=== PATIENT | female | born 1980 | race Hispanic/Latino ===

== ENCOUNTER 2017-12-03 18:16 | Observation (INO) | payer OTHER ==
[~2017-12-03] VITALS: Ht 180.3 cm; Wt 103.4 kg
[~2017-12-03 18:16] MED LIST: BYSTOLIC10 MG PO; CEFAZOLIN2 GM/50 ML IV; COUMADIN2 MG PO; IUD; MIDODRINE; TOPAMAX; TOPAMAX25 MG PO; TYLENOL WITH C1 EAC1 PO; XARELTO20 MG PO; ZANAFLEX4 MG PO
--- OUTSIDE RECORDS SUMMARY | 2017-12-03 18:19 | XMS REPORT | Clinical Summary ---
Author Author [facility] Address Unknown Phone Unavailable Care Team Providers Care Croze Cutter Name Role Phone PCP Unavailable Allergies Active Allergy Reactions Severity Noted Date Comments Sulfamethoxazole-Trimetho Hives 05/11/2015 prim Other 05/11/2015 chlorahexadine and pineapple Shellfish Containing 05/11/2015 Products Sulfa (Sulfonamide Hives 05/11/2015 Antibiotics) Current Medications Prescription Sig. Disp. Refills Start End Date Status Date topiramate (TOPAMAX) 50 Take 50 mg by mouth 2 Active MG tablet (two) times daily. WARFARIN SODIUM by Miscellaneous route 3 Active (WARFARIN, BULK, MISC) mg Tues, Thurs, Sat, Sun 5 mg Mon, Wed, Frid . acetaminophen-codeine Take 1 tablet by mouth 20 tablet 0 06/04/20 (TYLENOL #3) 300-30 mg every 4 (four) hours as 17 17 per tablet needed for up to 10 days. Max Daily Amount: 6 tablets Active Problems Not on file Encounters Date Type Specialty Care Team Description 06/04/2017 Emergency Emergency Medicine Jose Carlos Victor MD Chest pain, unspecified type (Primary Dx);Generalized abdominal pain;Shortness of breath 06/04/2017 Orders Only General Internal Medicine 01/31/2017 Hospital Jose Horner MD Visit for screening Encounter mammogram 01/30/2017 Outside Orders Central Scheduling Jose Horner MD Visit for screening mammogram (Primary Dx) after 12/02/2016 Social History Tobacco Use Types Packs/Day Years Used Date Never Smoker Alcohol Use Drinks/Week oz/Week Comments No Sex Assigned at Date Recorded Not on file Last Filed Vital Signs Vital Sign Reading Time Taken Blood Pressure 106/70 06/04/2017 1:10 PM EQUALIZER OPERATOR Pulse 96 06/04/2017 1:10 PM EQUALIZER OPERATOR Temperature 37 C (98.6 F) 06/04/2017 1:10 PM EQUALIZER OPERATOR Respiratory Rate 16 06/04/2017 1:10 PM EQUALIZER OPERATOR Oxygen Saturation 100% 06/04/2017 1:10 PM EQUALIZER OPERATOR Inhaled Oxygen - - Concentration Weight 107.5 kg (237 lb) 06/04/2017 9:09 AM EQUALIZER OPERATOR Height 180.3 cm (5' 11") 06/04/2017 9:09 AM EQUALIZER OPERATOR Body Mass Index 33.05 06/04/2017 9:09 AM EQUALIZER OPERATOR Plan of Treatment Not on file Results * EKG-SCANNED (06/05/2017 10:30 AM) * CT chest for pulmonary embolus (06/04/2017 11:51 AM) Specimen Performing Laboratory 3yy game platform Narrative FINAL REPORT Chest CT with contrast, PE protocol. Abdomen and pelvis CT with contrast. INDICATION: abdominal pain cp/sob following ivc filter removal last week COMPARISON: 05/11/2015 TECHNIQUE: CT examination of the chest was performed after the administration of intravenous contrast per pulmonary embolism protocol. Coronal multiplanar reformation of the pulmonary arteries were performed. CT examination of the abdomen and pelvis was performed after the administration of intravenous contrast. This exam was performed according to our departmental dose optimization program which includes automated exposure control, adjustment of the mA and/or kV according to patient size and/or use of iterative reconstructive technique. The examination of the abdomen and pelvis was suboptimal due to scanner malfunction. Only delayed series of the abdomen and pelvis were obtained. FINDINGS: The contrast bolus was adequate. There is no abnormal filling defect in the pulmonary trunk or pulmonary arteries to suggest pulmonary embolism. There is no pneumothorax, pulmonary edema or pleural effusion. There is mild atelectasis and scarring without focal consolidation. The major airways are clear. The visualized portion of the thyroid gland appear unremarkable. There is no hilar, mediastinal or axillary lymphadenopathy. The liver, spleen, pancreas, and adrenal glands are unremarkable. The gallbladder is unremarkable. There is no biliary dilatation. The stomach is underdistended limiting its evaluation. Both kidneys are unremarkable. The urinary bladder is unremarkable. The uterus and adnexa are unremarkable. No pelvic masses are seen. There is no free fluid in the abdomen and pelvis. There is no bowel obstruction or perforation. The appendix appear unremarkable. There is no fluid collection or hematoma. There is no lymphadenopathy. The osseous structures demonstrate postsurgical changes from multilevel lumbar fusion. No suspicious mass or fracture is seen. There is mild fat stranding in the right inguinal region without fluid collection or hematoma. IMPRESSION: 1. No evidence of pulmonary embolism. 2. No acute abnormality visualized in the abdomen and pelvis. Signed: Manas Andrew MD Report Verified Date/Time:06/04/2017 12:17:40 Reading Location: [facility] C013X Ortho Consult Reading Room Procedure Note Interface, External Ris In - 06/04/2017 12:19 PM EQUALIZER OPERATOR FINAL REPORT Chest CT with contrast, PE protocol. Abdomen and pelvis CT with contrast. INDICATION: abdominal pain cp/sob following ivc filter removal last week COMPARISON: 05/11/2015 TECHNIQUE: CT examination of the chest was performed after the administration of intravenous contrast per pulmonary embolism protocol. Coronal multiplanar reformation of the pulmonary arteries were performed. CT examination of the abdomen and pelvis was performed after the administration of intravenous contrast. This exam was performed according to our departmental dose optimization program which includes automated exposure control, adjustment of the mA and/or kV according to patient size and/or use of iterative reconstructive technique. The examination of the abdomen and pelvis was suboptimal due to scanner malfunction. Only delayed series of the abdomen and pelvis were obtained. FINDINGS: The contrast bolus was adequate. There is no abnormal filling defect in the pulmonary trunk or pulmonary arteries to suggest pulmonary embolism. There is no pneumothorax, pulmonary edema or pleural effusion. There is mild atelectasis and scarring without focal consolidation. The major airways are clear. The visualized portion of the thyroid gland appear unremarkable. There is no hilar, mediastinal or axillary lymphadenopathy. The liver, spleen, pancreas, and adrenal glands are unremarkable. The gallbladder is unremarkable. There is no biliary dilatation. The stomach is underdistended limiting its evaluation. Both kidneys are unremarkable. The urinary bladder is unremarkable. The uterus and adnexa are unremarkable. No pelvic masses are seen. There is no free fluid in the abdomen and pelvis. There is no bowel obstruction or perforation. The appendix appear unremarkable. There is no fluid collection or hematoma. There is no lymphadenopathy. The osseous structures demonstrate postsurgical changes from multilevel lumbar fusion. No suspicious mass or fracture is seen. There is mild fat stranding in the right inguinal region without fluid collection or hematoma. IMPRESSION: 1. No evidence of pulmonary embolism. 2. No acute abnormality visualized in the abdomen and pelvis. Signed: Manas Andrew MD Report Verified Date/Time: 06/04/2017 12:17:40 Reading Location: [facility] B1 C013X Ortho Consult Reading Room * CT abdomen/pelvis with IV contrast (06/04/2017 11:51 AM) Specimen Performing Laboratory 3yy game platform Narrative FINAL REPORT Chest CT with contrast, PE protocol. Abdomen and pelvis CT with contrast. INDICATION: abdominal pain cp/sob following ivc filter removal last week COMPARISON: 05/11/2015 TECHNIQUE: CT examination of the chest was performed after the administration of intravenous contrast per pulmonary embolism protocol. Coronal multiplanar reformation of the pulmonary arteries were performed. CT examination of the abdomen and pelvis was performed after the administration of intravenous contrast. This exam was performed according to our departmental dose optimization program which includes automated exposure control, adjustment of the mA and/or kV according to patient size and/or use of iterative reconstructive technique. The examination of the abdomen and pelvis was suboptimal due to scanner malfunction. Only delayed series of the abdomen and pelvis were obtained. FINDINGS: The contrast bolus was adequate. There is no abnormal filling defect in the pulmonary trunk or pulmonary arteries to suggest pulmonary embolism. There is no pneumothorax, pulmonary edema or pleural effusion. There is mild atelectasis and scarring without focal consolidation. The major airways are clear. The visualized portion of the thyroid gland appear unremarkable. There is no hilar, mediastinal or axillary lymphadenopathy. The liver, spleen, pancreas, and adrenal glands are unremarkable. The gallbladder is unremarkable. There is no biliary dilatation. The stomach is underdistended limiting its evaluation. Both kidneys are unremarkable. The urinary bladder is unremarkable. The uterus and adnexa are unremarkable. No pelvic masses are seen. There is no free fluid in the abdomen and pelvis. There is no bowel obstruction or perforation. The appendix appear unremarkable. There is no fluid collection or hematoma. There is no lymphadenopathy. The osseous structures demonstrate postsurgical changes from multilevel lumbar fusion. No suspicious mass or fracture is seen. There is mild fat stranding in the right inguinal region without fluid collection or hematoma. IMPRESSION: 1. No evidence of pulmonary embolism. 2. No acute abnormality visualized in the abdomen and pelvis. Signed: Manas Andrew MD Report Verified Date/Time:06/04/2017 12:17:40 Reading Location: [facility] C013X Ortho Consult Reading Room Procedure Note Interface, External Ris In - 06/04/2017 12:19 PM EQUALIZER OPERATOR FINAL REPORT Chest CT with contrast, PE protocol. Abdomen and pelvis CT with contrast. INDICATION: abdominal pain cp/sob following ivc filter removal last week COMPARISON: 05/11/2015 TECHNIQUE: CT examination of the chest was performed after the administration of intravenous contrast per pulmonary embolism protocol. Coronal multiplanar reformation of the pulmonary arteries were performed. CT examination of the abdomen and pelvis was performed after the administration of intravenous contrast. This exam was performed according to our departmental dose optimization program which includes automated exposure control, adjustment of the mA and/or kV according to patient size and/or use of iterative reconstructive technique. The examination of the abdomen and pelvis was suboptimal due to scanner malfunction. Only delayed series of the abdomen and pelvis were obtained. FINDINGS: The contrast bolus was adequate. There is no abnormal filling defect in the pulmonary trunk or pulmonary arteries to suggest pulmonary embolism. There is no pneumothorax, pulmonary edema or pleural effusion. There is mild atelectasis and scarring without focal consolidation. The major airways are clear. The visualized portion of the thyroid gland appear unremarkable. There is no hilar, mediastinal or axillary lymphadenopathy. The liver, spleen, pancreas, and adrenal glands are unremarkable. The gallbladder is unremarkable. There is no biliary dilatation. The stomach is underdistended limiting its evaluation. Both kidneys are unremarkable. The urinary bladder is unremarkable. The uterus and adnexa are unremarkable. No pelvic masses are seen. There is no free fluid in the abdomen and pelvis. There is no bowel obstruction or perforation. The appendix appear unremarkable. There is no fluid collection or hematoma. There is no lymphadenopathy. The osseous structures demonstrate postsurgical changes from multilevel lumbar fusion. No suspicious mass or fracture is seen. There is mild fat stranding in the right inguinal region without fluid collection or hematoma. IMPRESSION: 1. No evidence of pulmonary embolism. 2. No acute abnormality visualized in the abdomen and pelvis. Signed: Manas Andrew MD Report Verified Date/Time: 06/04/2017 12:17:40 Reading Location: [facility] B1 C013X Ortho Consult Reading Room * ECG 12 lead (06/04/2017 9:36 AM) Specimen Performing Laboratory GE MUSE Narrative Ventricular Rate 112 BPM Atrial Rate 112 BPM P-R Interval 142 ms QRS Duration 76 ms Q-T Interval 314 ms QTC Calculation(Bazett) 428 ms P [place] 56 degrees R [place] 33 degrees T [place] 37 degrees Sinus tachycardia Otherwise normal ECG When compared with ECG of 11-MAY-2015 12:04, No significant change was found Confirmed by MD PEACE YOCHAI ([id number]) on 06/05/2017 7:12:12 AM Procedure Note Interface, External Ris In - 06/05/2017 7:12 AM EQUALIZER OPERATOR Ventricular Rate 112 BPM Atrial Rate 112 BPM P-R Interval 142 ms QRS Duration 76 ms Q-T Interval 314 ms QTC Calculation(Bazett) 428 ms P [place] 56 degrees R [place] 33 degrees T [place] 37 degrees Sinus tachycardia Otherwise normal ECG When compared with ECG of 11-MAY-2015 12:04, No significant change was found Confirmed by MD PEACE YOCHAI ([id number]) on 06/05/2017 7:12:12 AM * Screen, urine (06/04/2017 9:28 AM) Component Value Ref Range Preg Test, Ur Negative Specimen Performing Laboratory Urine - Urine, Voided [address] [address] * PT/aPTT (06/04/2017 9:27 AM) Component Value Ref Range Protime 20.1 (H) 11.7 - 14.7 seconds INR 1.7 <=5.9 PTT 39.4 (H) 22.5 - 36.0 seconds Specimen Performing Laboratory Blood - Line, Venous [address] [address] Narrative RECOMMENDED COUMADIN/WARFARIN INR THERAPY RANGES STANDARD DOSE: 2.0 - 3.0 Includes: PROPHYLAXIS for venous thrombosis, systemic embolization; TREATMENT for venous thrombosis and/or pulmonary embolus. HIGH RISK: Target INR is 2.5-3.5 for patients with mechanical heart valves. * CBC with platelet count + automated diff (06/04/2017 9:27 AM) Component Value Ref Range WBC 10.6 (H) 3.5 - 10.5 K/ L RBC 4.33 3.93 - 5.22 M/ L Hemoglobin 13.0 11.2 - 15.7 GM/DL Hematocrit 40.4 34.1 - 44.9 % MCV 93.3 79.4 - 94.8 fL MCH 30.0 25.6 - 32.2 pg MCHC 32.2 32.2 - 35.5 GM/DL RDW 14.5 (H) 11.7 - 14.4 % Platelets 285 150 - 450 K/CU MM MPV 9.8 9.4 - 12.3 fL nRBC 0 0 - 0 /100 WBC % Neutros 66 % % Lymphs 23 % % Monos 7 % % Eos 3 % % Baso 1 % # Neutros 7.01 (H) 1.56 - 6.13 K/ L # Lymphs 2.44 1.18 - 3.74 K/ L # Monos 0.71 (H) 0.24 - 0.36 K/ L # Eos 0.31 0.04 - 0.36 K/ L # Baso 0.07 0.01 - 0.08 K/ L Immature 0 0 - 1 % Granulocytes-Relative Specimen Performing Laboratory Blood - Line, Venous [facility] [address] [address] * CBC with platelet count + automated diff (06/04/2017 9:27 AM) Specimen Performing Laboratory Blood Narrative The following orders were created for panel order CBC with platelet count + automated diff. Procedure Abnormality Status --------- - ------ CBC with platelet count ...[[id number]]AbnormalFinal result Please view results for these tests on the individual orders. * Comprehensive metabolic panel (06/04/2017 9:27 AM) Component Value Ref Range Protein, Total 8.1 6.0 - 8.3 gm/dL Albumin 4.2 3.5 - 5.0 g/dL Alkaline Phosphatase 85 40 - 150 U/L Total Bilirubin 0.4 0.2 - 1.2 mg/dL Sodium 138 136 - 145 meq/L Potassium 3.7 3.5 - 5.1 meq/L Chloride 109 (H) 98 - 107 meq/L CO2 19 (L) 22 - 29 meq/L BUN 9 7 - 21 mg/dL Creatinine 0.83 0.57 - 1.25 mg/dL Glucose 119 (H) 70 - 105 mg/dL Calcium 9.3 8.4 - 10.2 mg/dL AST 23 5 - 34 U/L ALT 16 6 - 55 U/L EGFR 78Comment: ESTIMATED GFR IS NOT ACCURATE mL/min/1.73 sq m CREATININE CLEARANCE IN PREDICTING GLOMERULAR FILTRATION RATE. ESTIMATED GFR IS NOT APPLICABLE FOR DIALYSIS PATIENTS. Specimen Performing Laboratory Blood - Line, [place] [address] * POC-Lactic Acid, Venous (06/04/2017 9:23 AM) Component Value Ref Range POC-Lactic Acid, Venous 1.7Comment: TESTED AT [address] 0.9 - 1.7 mmol/L [place] [address] Specimen Performing [place] [address] * POC-Glucose meter (06/04/2017 9:22 AM) Component Value Ref Range POC-Glucose Meter 131 (H)Comment: TESTED AT [address] 70 - 110 mg /dL [place] [address] Specimen Performing [place] [address] * Mammogram Screening Bilateral (01/31/2017 1:52 PM) Specimen Performing Laboratory GE RIS Narrative #[id number] - MM, DIGITAL, MAMMO, SCREENING, BILATERAL INCLUDING CAD BILATERAL DIGITAL SCREENING MAMMOGRAM WITH CAD: 01/31/2017 No prior exams were available for comparison. There are scattered fibroglandular elements in both breasts that could obscure a lesion on mammography. Current study was also evaluated with a Computer Aided Detection (CAD) system. No significant masses, calcifications, or other findings are seen in either breast. IMPRESSION: BENIGN There is no mammographic evidence of malignancy. A 5 year screening mammogram is recommended. Luis Hollingsworth M.D. pth/penrad:01/31/2017 14:16:04 Normal Exam Mammogram BI-RADS: 2 Benign [id number] Procedure Note Interface, External Ris In - 01/31/2017 4:22 PM CDT #[id number] - MM, DIGITAL, MAMMO, SCREENING, BILATERAL INCLUDING CAD BILATERAL DIGITAL SCREENING MAMMOGRAM WITH CAD: 01/31/2017 No prior exams were available for comparison. There are scattered fibroglandular elements in both breasts that could obscure a lesion on mammography. Current study was also evaluated with a Computer Aided Detection (CAD) system. No significant masses, calcifications, or other findings are seen in either breast. IMPRESSION: BENIGN There is no mammographic evidence of malignancy. A 5 year screening mammogram is recommended. Luis Hollingsworth M.D. pth/penrad:01/31/2017 14:16:04 Normal Exam Mammogram BI-RADS: 2 Benign [id number] after 12/02/2016
--- OUTSIDE RECORDS SUMMARY | 2017-12-03 18:19 | XMS REPORT ---
Author Author [facility] Address Unknown Phone Unavailable Care Team Providers Care Medical Administrative Specialist Name Role Phone ADRIENNE SANTA Unavailable Unavailable Problems This patient has no known problems. Allergies, Adverse Reactions, Alerts This patient has no known allergies or adverse reactions. Medications This patient has no known medications. Results Test Description Test Time Test Comments Text Results Atomic Results Result Comments CT, ABDOMEN 2017-06-04 12:17:00 Reason for exam:->abdominal painIs the patient ?->UnknownWhat is the patient's sedation requirement?->No Sedation FINAL REPORT Chest CT with contrast, PE protocol. Abdomen and pelvis CT with contrast. INDICATION: abdominal paincp/sob following ivc filter removal last week COMPARISON: [...] inguinal region without fluid collection or hematoma. IMPRESSION:1. No evidence of pulmonary embolism.2. No acute abnormality visualized in the abdomen and pelvis. Signed: Manas Andrew MDReport Verified Date/Time: 06/04/2017 12:17:40 Reading Location: [facility] B1 C013X Ortho Consult Reading Room , CHEST WITH IV CONTRAST- PE TEST DESIGN 2017-06-04 12:17:00 Reason for exam:->chest painIs the patient ?->UnknownWhat is the patient's sedation requirement?->No Sedation FINAL REPORT Chest CT with contrast, PE protocol. Abdomen and pelvis CT with contrast. INDICATION: abdominal paincp/sob following ivc filter removal last week COMPARISON: 2014 TECHNIQUE: CT examination of the chest was [...] inguinal region without fluid collection or hematoma. IMPRESSION:1. No evidence of pulmonary embolism.2. No acute abnormality visualized in the abdomen and pelvis. Signed: Manas Andrew MDReport Verified Date/Time: 06/04/2017 12:17:40 Reading Location: [facility] B1 C013X Ortho Consult Reading Room -GLUCOSE METER 2017-06-04 11:46:00 POC-GLUCOSE METER (BEAKER) (test drpm=1866) 131 mg/dL 70-110 TESTED AT [facility] [address] [facility] [address] [id number] 10:00:00* Test Item Value Reference Range Comments PROTIME (BEAKER) (test mzuz=271) 20.1 seconds 11.7-14.7 INR (BEAKER) (test qkon=885) 1.7 <=5.9 PARTIAL THROMBOPLASTIN TIME (BEAKER) (test lxga=790) 39.4 seconds 22.5-36.0 RECOMMENDED COUMADIN/WARFARIN INR THERAPY RANGESSTANDARD DOSE: 2.0 - 3.0 Includes: PROPHYLAXIS for venous thrombosis, systemic embolization; TREATMENT for venous thrombosis and/or pulmonary embolus.HIGH RISK: Target INR is 2.5-3.5 for patients with mechanical heart valves.COMPREHENSIVE METABOLIC [id number] 09:58:00* Test Item Value Reference Range Comments TOTAL PROTEIN (BEAKER) (test hbyi=214) 8.1 gm/dL 6.0-8.3 ALBUMIN (BEAKER) (test repq=1381) 4.2 g/dL 3.5-5.0 ALKALINE PHOSPHATASE (BEAKER) (test kwyq=411) 85 U/L 40-150 BILIRUBIN TOTAL (BEAKER) (test ford=509) 0.4 mg/dL 0.2-1.2 SODIUM (BEAKER) (test pobi=492) 138 meq/L 136-145 POTASSIUM (BEAKER) (test fwex=047) 3.7 meq/L 3.5-5.1 CHLORIDE (BEAKER) (test rtxi=984) 109 meq/L 98-107 CO2 (BEAKER) (test paur=681) 19 meq/L 22-29 BLOOD UREA NITROGEN (BEAKER) (test qxvl=013) 9 mg/dL 7-21 CREATININE (BEAKER) (test ejku=823) 0.83 mg/dL 0.57-1.25 GLUCOSE RANDOM (BEAKER) (test fjmh=189) 119 mg/dL 70-105 CALCIUM (BEAKER) (test xdox=552) 9.3 mg/dL 8.4-10.2 AST (SGOT) (BEAKER) (test qguo=550) 23 U/L 5-34 ALT (SGPT) (BEAKER) (test psis=105) 16 U/L 6-55 EGFR (BEAKER) (test yowd=0538) 78 mL/min/1.73 sq m ESTIMATED GFR IS NOT ACCURATE CREATININE CLEARANCE IN PREDICTING GLOMERULAR FILTRATION RATE. ESTIMATED GFR IS NOT APPLICABLE FOR DIALYSIS PATIENTS. SCREEN, [id number] 09:46:00* Test Item Value Reference Range Comments TEST URINE (BEAKER) (test lyro=603) Negative CBC W/PLT COUNT & AUTO [id number] 09:42:00* Test Item Value Reference Range Comments WHITE BLOOD CELL COUNT (BEAKER) (test daoi=572) 10.6 K/ L 3.5-10.5 RED BLOOD CELL COUNT (BEAKER) (test xeiw=310) 4.33 M/ L 3.93-5.22 HEMOGLOBIN (BEAKER) (test budz=140) 13.0 GM/DL 11.2-15.7 HEMATOCRIT (BEAKER) (test sxyy=605) 40.4 % 34.1-44.9 MEAN CORPUSCULAR VOLUME (BEAKER) (test qkrg=649) 93.3 fL 79.4-94.8 MEAN CORPUSCULAR HEMOGLOBIN (BEAKER) (test awyt=485) 30.0 pg 25.6-32.2 MEAN CORPUSCULAR HEMOGLOBIN CONC (BEAKER) (test mmfk=825) 32.2 GM/DL 32.2- 35.5 RED CELL DISTRIBUTION WIDTH (BEAKER) (test pbna=210) 14.5 % 11.7-14.4 PLATELET COUNT (BEAKER) (test ozbl=135) 285 K/CU MM 150-450 MEAN PLATELET VOLUME (BEAKER) (test zgzi=800) 9.8 fL 9.4-12.3 NUCLEATED RED BLOOD CELLS (BEAKER) (test imai=372) 0 /100 WBC 0-0 NEUTROPHILS RELATIVE PERCENT (BEAKER) (test bzud=804) 66 % LYMPHOCYTES RELATIVE PERCENT (BEAKER) (test bvle=446) 23 % MONOCYTES RELATIVE PERCENT (BEAKER) (test fdlh=681) 7 % EOSINOPHILS RELATIVE PERCENT (BEAKER) (test zbev=875) 3 % BASOPHILS RELATIVE PERCENT (BEAKER) (test ldnv=070) 1 % NEUTROPHILS ABSOLUTE COUNT (BEAKER) (test anjj=469) 7.01 K/ L 1.56-6.13 LYMPHOCYTES ABSOLUTE COUNT (BEAKER) (test hohj=642) 2.44 K/ L 1.18-3.74 MONOCYTES ABSOLUTE COUNT (BEAKER) (test kevl=479) 0.71 K/ L 0.24-0.36 EOSINOPHILS ABSOLUTE COUNT (BEAKER) (test uvlt=390) 0.31 K/ L 0.04-0.36 BASOPHILS ABSOLUTE COUNT (BEAKER) (test gluy=462) 0.07 K/ L 0.01-0.08 IMMATURE GRANULOCYTES-RELATIVE PERCENT (BEAKER) (test cqnm=6753) 0 % 0-1 POCT-LACTIC ACID, [id number] 09:33:00* Test Item Value Reference Range Comments POC-LACTIC ACID, VENOUS (BEAKER) (test osmz=8225) 1.7 mmol/L 0.9-1.7 TESTED AT [facility] [address] [facility] [address]
--- OUTSIDE RECORDS SUMMARY | 2017-12-03 18:19 | XMS REPORT | Clinical Summary ---
Author Author [facility] Address Unknown Phone Unavailable Care Team Providers Care Independent Living Specialist Name Role Phone Andrey Morris MD PCP Unavailable Allergies Active Allergy Reactions Severity Noted Date Comments Chlorhexidine High Blisters Other 05/11/2015 chlorahexadine and pineapple Pineapple 07/05/2015 Shellfish Containing 05/11/2015 Products Sulfa (Sulfonamide Hives 05/11/2015 Antibiotics) Sulfamethoxazole-Trimetho Hives 05/11/2015 prim Current Medications Prescription Sig. Disp. Refills Start End Date Status Date esomeprazole (NexIUM) 40 Take 40 mg by mouth daily Active MG capsule before breakfast. topiramate (TOPAMAX) 100 Take 100 mg by mouth 2 Active MG tablet (two) times a day. sucralfate (CARAFATE) 100 Take 1 g by mouth Active mg/mL suspension nightly. ergocalciferol (VITAMIN Take 50,000 Units by Active D2) 50,000 unit capsule mouth once a week. nebivolol (BYSTOLIC) 5 MG Take 5 mg by mouth every Active tablet evening. multivitamin capsule Take 1 capsule by mouth Active daily. nebivolol (BYSTOLIC) 2.5 Take 1 tablet (2.5 mg 30 tablet 0 11/18/19 12/05/19 Discontin MG tabletIndications: total) by mouth daily. 17 17 ued Essential hypertension topiramate (TOPAMAX) 50 Take 100 mg by mouth 2 10/10/19 Discontin MG tablet (two) times a day. 18 ued WARFARIN SODIUM (WARFARIN by Miscellaneous route 3 05/14/20 Discontin ORAL) mg Tues, Thurs, Sat, Sun5 17 ued mg Mon, Wed, Frid . predniSONE (DELTASONE) 20 Take 20 mg by mouth 2 0 11/22/19 05/14/20 Discontin mg tablet (two) times a day. 17 17 ued rivaroxaban (XARELTO) 20 Take 20 mg by mouth 05/14/20 Discontin mg tablet daily. 17 ued ibuprofen (ADVIL,MOTRIN) Take 800 mg by mouth 05/14/20 Discontin 800 MG tablet nightly. 17 ued nebivolol (BYSTOLIC) 2.5 Take 1 tablet (2.5 mg 30 tablet 0 12/05/19 12/08/19 Discontin MG tabletIndications: total) by mouth daily. As 17 17 ued Essential hypertension needed. nebivolol (BYSTOLIC) 2.5 Take 1 tablet (2.5 mg 90 tablet 0 12/08/19 05/14/20 Discontin MG tabletIndications: total) by mouth daily. As 17 17 ued Essential hypertension needed. rivaroxaban (XARELTO) 15 Take 1 tablet (15 mg 30 tablet 0 06/02/20 06/17/20 mg tablet total) by mouth 2 (two) 17 17 times a day for 15 days. acetaminophen-codeine Take 1 tablet by mouth. 06/04/20 06/14/20 (TYLENOL WITH CODEINE #3) 17 17 300-30 mg per tablet nebivolol (BYSTOLIC) 5 MG Take 1 tablet (5 mg 90 tablet 3 06/05/20 10/10/19 Discontin tablet total) by mouth daily. 17 18 ued plecanatide (TRULANCE) 3 Take 1 tablet (3 mg 30 tablet 5 10/18/19 Discontin mg tablet total) by mouth daily. 18 18 ued Can be taken with or without food. acetaminophen-codeine Take 1 tablet by mouth 20 tablet 0 11/09/19 (TYLENOL WITH CODEINE #3) every 4 (four) hours as 18 18 300-30 mg per tablet needed for moderate pain for up to 14 days. traMADol (ULTRAM) 50 mg Take 1 tablet (50 mg 20 tablet 0 11/09/19 Discontin tablet total) by mouth every 6 18 18 ued (six) hours as needed for moderate pain for up to 14 days. traMADol (ULTRAM) 50 mg Take 1 tablet (50 mg 20 tablet 0 11/09/19 tablet total) by mouth every 6 18 18 (six) hours as needed for moderate pain for up to 14 days. Active Problems Problem Noted Date Asymptomatic cholelithiasis 11/08/2017 SOB (shortness of breath) 06/05/2017 Chest pain 06/05/2017 Non-rheumatic tricuspid valve insufficiency 06/05/2017 Deep vein thrombosis (DVT) 06/04/2017 Deep venous thrombosis of lower extremity 05/15/2017 Essential hypertension 12/05/2016 Acute deep vein thrombosis (DVT) of femoral vein 12/05/2016 Encounters Date Type Specialty Care Team Description 11/22/2017 Office Visit General Surgery Darinel Nieto MD S/P laparoscopic cholecystectomy (Primary Dx) 11/15/2017 Office Visit General Surgery Darinel Nieto MD Epigastric pain (Primary Dx); S/P laparoscopic cholecystectomy 11/08/2017 [facility] Orthopedic Surgery Darinel Nieto MD Asymptomatic - Encounter cholelithiasis 11/09/2017 11/08/2017 Anesthesia General Surgery Kamlesh Hilliard MD Event 11/08/2017 Procedure Pass General Surgery 11/08/2017 Surgery General Surgery Darinel Nieto MD LAPAROSCOIC CHOLECYSTOMY 11/02/2017 Procedure Pass General Surgery 11/01/2017 Telephone Gastroenterology Luzma Lara MA 10/29/2017 Lab Lab Dell Solorio MD 10/18/2017 Pre-Admit Pre-Admission Testing Darinel Nieto MD Preop testing (Primary Testing Dx) Appointment 10/17/2017 Telephone Gastroenterology Jeimy Brock RN 10/09/2017 Office Visit General Surgery Darinel Nieto MD Symptomatic cholelithiasis (Primary Dx) 10/09/2017 Office Visit Gastroenterology Dell Solorio MD Other constipation (Primary Dx); Dyspepsia; Calculus of gallbladder without cholecystitis without obstruction 10/01/2017 Office Visit Cardiology Kaycee Brar MD Deep vein thrombosis (DVT) of left lower extremity, unspecified chronicity, unspecified vein (Primary Dx) 07/09/2017 Office Visit Cardiology Kaycee Brar MD SOB (shortness of breath) (Primary Dx); Non-rheumatic tricuspid valve insufficiency 06/05/2017 Office Visit Cardiology Kaycee Brar MD SOB (shortness of breath) (Primary Dx); Chest pain, unspecified type; Non-rheumatic tricuspid valve insufficiency 06/01/2017 [facility] Cardiology Kaycee Brar MD Deep vein thrombosis - Encounter (DVT) of other vein of 06/02/2017 lower extremity, unspecified chronicity, unspecified laterality 06/01/2017 Procedure Pass Procedural Cardiology 06/01/2017 Surgery Procedural Cardiology Kaycee Brar MD Cv inferior vena cava filter removal [78382 (CPT )] 05/16/2017 Orders Only Cardiology Monisha Majano MA Deep vein thrombosis (DVT) of other vein of lower extremity, unspecified chronicity, unspecified laterality (Primary Dx) 05/14/2017 Office Visit Cardiology Kaycee Brar MD Deep vein thrombosis (DVT) of other vein of lower extremity, unspecified chronicity, unspecified laterality (Primary Dx) 12/07/2016 Orders Only Cardiology Shamika Emanuel MA Essential hypertension 12/04/2016 Office Visit Cardiology Kaycee Brar MD Essential hypertension (Primary Dx); Acute deep vein thrombosis (DVT) of femoral vein, unspecified laterality after 12/02/2016 Family History Medical History Relation Name Comments Hypertension Father Diabetes Mother Relation Name Status Comments Father Mother Social History Tobacco Use Types Packs/Day Years Used Date Never Smoker Smokeless Tobacco: Never Used Alcohol Use Drinks/Week oz/Week Comments Yes rarely Sex Assigned at Date Recorded Not on file Last Filed Vital Signs Vital Sign Reading Time Taken Blood Pressure 92/55 11/09/2017 7:43 AM CDT Pulse 57 11/09/2017 7:43 AM CDT Temperature 35.8 C (96.5 F) 11/09/2017 7:43 AM CDT Respiratory Rate 18 11/09/2017 7:43 AM CDT Oxygen Saturation 100% 11/09/2017 7:43 AM CDT Inhaled Oxygen - - Concentration Weight 103 kg (226 lb) 11/08/2017 9:25 PM CDT Height 180.3 cm (5' 11") 11/08/2017 9:25 PM CDT Body Mass Index 31.52 11/08/2017 9:25 PM CDT Plan of Treatment Health Maintenance Due Date Last Done Comments CERVICAL CANCER SCREENING 2002 INFLUENZA VACCINE 01/30/2018 Implants Implanted Type Area Hair Worker Device Expiration Model / Identifier Date Serial / Lot Catheter Cardiac 8f Mach 1 Fr4 - Cardiovasc N/A: N/A [facility] [place] [id number] ular INTERVENTIONAL 20 / Implanted: 06/01/2017 (Quantity not Implants CARDIOLOGY / on file) Catheter Cardiac 8f Mach 1 Fr4 - Cardiovasc N/A: N/A [facility] [place] [id number] carlos INTERVENTIONAL 20 / Implanted: 06/01/2017 (Quantity not Implants CARDIOLOGY / on file) Procedures Procedure Name Priority Date/Time Associated Diagnosis Comments TN AN ELECTIVE Routine 11/08/2017 ENDOTRACHEAL AIRWAY 1:34 PM CDT Procedure Note - Tammi Melendez CRNA - 11/08/2017 1:34 PM CDT Airway Date/Time: 11/08/2017 1:21 PM Performed by: TAMMI MELENDEZ Authorized by: BAYRON SINGH Location: OR Urgency: Elective Difficult Airway: No Resident/C RNA/AA: TAMMI MELENDEZ Performed by: resident/C RNA/AA Preoxygena michaela with 100% O2: Yes C-spine Precaution s Maintained Throughout : Yes Mask Ventilatio n: Easy mask Final Airway Type: Endotrache al airway Final Endotrache al Airway: ETT Cuffed: Yes Technique Used: Direct laryngosco py Insertion Site: Oral Blade Type: [place] Laryngosco pe Blade/Vide olaryngosc ope Blade Size: 2 ETT Size (mm): 7.0 Cuff at minimum occlusion pressure: Yes Measured from: Gums ETT to Gums (cm): 22 Placement Verified by: CO2 detection, direct visualizat ion and equal breath sounds Laryngosco pic view: Grade I - full view of glottis Rapid Sequence Induction (RSI): No Modified RSI: No Number of Attempts at Approach: 1 LAPAROSCOIC CHOLECYSTOMY 11/08/2017 Asymptomatic 11:00 AM CDT cholelithiasis Special Needs TF, REQ 1000 START ECHOCARDIOGRAM 2D Routine 06/05/2017 SOB (shortness of breath) Results for this COMPLETE W MMODE SPECTRAL 3:48 PM CUSTOMER SERVICE ADMINISTRATOR Chest pain, unspecified procedure are in the COLOR DOPPLER (02703) type results section. ECHOCARDIOGRAM 2D LIMITED STAT 06/01/2017 Results for this 4:43 PM CUSTOMER SERVICE ADMINISTRATOR procedure are in the results section. CV INFERIOR VENA CAVA Routine 06/01/2017 Deep vein thrombosis FILTER REMOVAL 4:30 PM CUSTOMER SERVICE ADMINISTRATOR (DVT) of other vein of lower extremity, unspecified chronicity, unspecified laterality after 12/02/2016 Results * Surgical pathology request (11/08/2017 3:37 PM) Only the most recent of 4 results within the time period is included. Component Value Ref Range Surgical pathology report See link below for PDF Lab Report Result status This is Final Report to [id number] Specimen Performing Laboratory [facility] DEPARTMENT OF PATHOLOGY AND GENOMIC MEDICINE [address] [place], [place] [address] * Estimated GFR (10/18/2017 2:03 PM) Only the most recent of 3 results within the time period is included. Component Value Ref Range GFR Non Af Amer 71 mL/min/1.73 m2 GFR Af Amer 86 mL/min/1.73 m2 Comment: Chronic kidney disease: <60 mL/min/1.73m2 Kidney failure: <15 mL/min/1.73m2 The estimated GFR is calculated from the IDMS-traceable Modification of Diet in Renal Disease Equation. The accuracy of the calculation is poor when the creatinine is normal. Calculated values >90 mL/min/1.73m2 are not reported. This equation has not been validated in children (<18 years), women, the elderly (>70 years), or ethnic groups other than Caucasians and Americans. Specimen Performing Laboratory Plasma specimen [facility] DEPARTMENT OF PATHOLOGY AND GENOMIC MEDICINE [address] [place] [address] * CBC with platelet and differential (10/18/2017 2:03 PM) Only the most recent of 3 results within the time period is included. Component Value Ref Range WBC 7.69 4.50 - 11.00 k/uL RBC 4.24 4.20 - 5.50 m/uL HGB 13.1 12.0 - 16.0 g/dL HCT 39.4 37.0 - 47.0 % MCV 92.9 82.0 - 100.0 fL MCH 30.9 27.0 - 34.0 pg MCHC 33.2 31.0 - 37.0 g/dL RDW - SD 48.3 37.0 - 55.0 fL MPV 10.0 8.8 - 13.2 fL Platelet count 344 150 - 400 k/uL Nucleated RBC 0.00 /100 WBC Neutrophils 63.5 39.0 - 69.0 % Lymphocytes 26.7 25.0 - 45.0 % Monocytes 5.2 0.0 - 10.0 % Eosinophils 3.4 0.0 - 5.0 % Basophils 0.9 0.0 - 1.0 % Immature granulocytes 0.3Comment: "Immature granulocytes" 0.0 - 1.0 % (promyelocytes, myelocytes, metamyelocytes) Specimen Performing Laboratory Blood [facility] DEPARTMENT OF PATHOLOGY AND [facility] MEDICINE [address] [place], [place] [address] * Comprehensive metabolic panel (10/18/2017 2:03 PM) Component Value Ref Range Sodium 141 135 - 148 mEq/L Potassium 3.4 (L) 3.5 - 5.0 mEq/L Chloride 104 98 - 112 mEq/L CO2 24 24 - 31 mEq/L Anion gap 13 7 - 15 mEq/L Comment: Starting from September , anion gap calculation no longer incorporates potassium. Please note the change. BUN 11 6 - 20 mg/dL Creatinine 0.9 0.5 - 0.9 mg/dL Glucose 87 65 - 99 mg/dL Calcium 9.3 8.3 - 10.2 mg/dL Protein 7.7 6.3 - 8.3 g/dL Comment: 4.6-7.0 g/dL 1 week 4.4-7.6 g/dL 7 months-1year 5.1-7.3 g/dL 1-2 years 5.6-7.5 g/dL >3 years 6.0-8.0 g/dL 18-150 6.3-8.3 g/dL Albumin 3.8 3.5 - 5.0 g/dL A/G ratio 1.0 0.7 - 3.8 Alkaline phosphatase 61 35 - 104 U/L AST 26 10 - 35 U/L ALT 17 5 - 50 U/L Total bilirubin 0.4 0.0 - 1.2 mg/dL Specimen Performing Laboratory Plasma specimen [facility] DEPARTMENT OF PATHOLOGY AND GENOMIC MEDICINE [address] [place] [address] * ECG 12 lead (06/05/2017 3:51 PM) Only the most recent of 3 results within the time period is included. Component Value Ref Range Ventricular rate 90 Atrial rate 90 TN interval 142 QRSD interval 68 QT interval 354 QTC interval 433 P axis 1 72 QRS axis 1 62 T wave axis 59 EKG impression Normal sinus rhythm-Normal ECG-In automated comparison with ECG of 01-JUN-2017 10:05,-No significant change was found- Specimen Performing Laboratory [facility] [address] [address] [place] [address] * Echocardiogram complete w contrast and 3D if needed (06/05/2017 3:48 PM) Specimen Performing Laboratory [facility] [address] [place] [address] [facility] Echocardiography Report Pat.Name:ELVIS LAWS Pat.ID:[id number] St.Date: 06/05/2017 Refer.MD:KAYCEE BRAR MD Exam Time: 5:24:00 PMStudy Type:Routine Echo Height:71inWeight:236lb BSA: 2.26 m2 DOBAge:1980,36Y Sex: FEMALEBP: 144/85 HR:80 bpmSonogrphr: Shagufta Vegas RDCS, RVT Pat. Stat.:OutpatientRoom:[place] Study Status:Final Echo Event ID:[id number] Order ID:[id number] Reason for Study:Chest pain, suspected cardiac etiology, SOB, suspected cardiac etiology History / Clinical:S/P IVC fliter removal 06/01/17 Procedures:2D Echo, Colorflow Doppler Race:C FINDINGS: LV: LV size is normal. LV EF is normal. Estimated EF is 55-59%. RV: RV size is normal. RV systolic function is normal. LA: LA size is normal. RA: RA size is normal. AO: Aortic root diameter is normal. DAVID: No pericardial effusion. AV: No structural AV abnormalities noted. MV: No structural MV abnormalities noted. PV: No structural PV abnormalities noted. TV: No structural TV abnormalities noted. A trace of tricuspid regurgitation Mejía: LV relaxation is normal. LV filling pressure is normal. Other:Estimated PA systolic pressure is 25-30 mmHg, assuming a meanRAP of 5 mmHg. MEASUREMENTS: 2D Parasternal Long [place] LVOT 1.9 cmLA Ds 3.1 cm LVIDd5.2 cmIndex 2.3 cm/m Ao An1.9 cm LVIDs3.3 cmAo Rtd 2.8 cm Index1.3 cm/m LV%fs 35.3 % LV Mass 115.7 g(87-129) IVSd 0.6 cmRWT 0.3 LVPWd0.7 cm WALL MOTION: RESTING WALL MOTION: Basal Inferior, Mid Inferior freeman are mildly hypokinetic. Normal in all other freeman. Wall Index=1.1 Signed 06/06/2017 08:55 AM Li Doran M.D. Procedure Note Interface, Radiology Results In - 06/06/2017 8:55 AM CUSTOMER SERVICE ADMINISTRATOR [facility] Echocardiography Report Pat.Name: ELVIS LAWS Pat.ID: [id number] .Date: 06/05/2017 Refer.MD: KAYCEE BRAR MD Exam Time: 5:24:00 PM Study Type:Routine Echo Height: 71in Weight: 236lb BSA: 2.26 m2 Age: 1 1980,36Y Sex: FEMALE BP: 144/85 HR: 80 bpm Sonogrphr: Shagufta Vegas RDCS, RVT Pat. Stat.:Outpatient Room: [place] Study Status:Final Echo Event ID:[id number] Order ID: [id number] Reason for Study:Chest pain, suspected cardiac etiology, SOB, suspected cardiac etiology History / Clinical:S/P IVC fliter removal 06/01/17 Procedures:2D Echo, Colorflow Doppler Race: C FINDINGS: LV: LV size is normal. LV EF is normal. Estimated EF is 55-59%. RV: RV size is normal. RV systolic function is normal. LA: LA size is normal. RA: RA size is normal. AO: Aortic root diameter is normal. DAVID: No pericardial effusion. AV: No structural AV abnormalities noted. MV: No structural MV abnormalities noted. PV: No structural PV abnormalities noted. TV: No structural TV abnormalities noted. A trace of tricuspid regurgitation Mejía: LV relaxation is normal. LV filling pressure is normal. Other: Estimated PA systolic pressure is 25-30 mmHg, assuming a mean RAP of 5 mmHg. MEASUREMENTS: 2D Parasternal Long [place] LVOT 1.9 cm LA Ds 3.1 cm LVIDd 5.2 cm Index 2.3 cm/m Ao An 1.9 cm LVIDs 3.3 cm Ao Rtd 2.8 cm Index 1.3 cm/m LV%fs 35.3 % LV Mass 115.7 g (87-129) IVSd 0.6 cm RWT 0.3 LVPWd 0.7 cm WALL MOTION: RESTING WALL MOTION: Basal Inferior, Mid Inferior freeman are mildly hypokinetic. Normal in all other freeman. Wall Index=1.1 Signed 06/06/2017 08:55 AM Li Doran M.D. * Lipid panel (06/02/2017 5:34 AM) Component Value Ref Range Cholesterol 136 <200 mg/dL Triglycerides 73 <150 mg/dL HDL cholesterol 40 >40 mg/dL LDL cholesterol 87Comment: Result obtained by direct LDL <100 mg/dL measurement Lipid panel SeeBelow interpretation Comment: Total Cholesterol (mg/dL) <200 Desirable 200-239 Borderline-high >=240 High Triglycerides (mg/dL) <150 Normal 150-199 Borderline-high 200-499 High >=500 Very high HDL Cholesterol (mg/dL) <40 Low (male) <40 Low (female) LDL Cholesterol (mg/dL) <100 Optimal 100-129 Near or above optimal 130-159 Borderline-high 160-189 High >=190 Very high Risk Catergories that modify LDL goals. Risk Catergories LDL goal (mg/dL) CHD and CHD risk equivalent <100 (10-year risk >20%) Multiple (2+) risk factors <130 (10-year risk=<20%) 0-1 risk factors <160 (<10-year risk) Defining levels of lipids in metabolic syndrome Triglycerides >=150 mg/dL HDL Cholesterol Men <40 mg/dL Women <40 mg/dL Non-HDL cholesterol is a second target for therapy in persons with high triglycerides (>=200 mg/dL) Specimen Performing Laboratory Plasma specimen [facility] DEPARTMENT OF PATHOLOGY AND GENOMIC MEDICINE [address] [place] [address] * Basic metabolic panel (06/02/2017 5:34 AM) Only the most recent of 2 results within the time period is included. Component Value Ref Range Sodium 141 135 - 148 mEq/L Potassium 4.1 3.5 - 5.0 mEq/L Chloride 107 98 - 112 mEq/L CO2 21 (L) 24 - 31 mEq/L Anion gap 13 7 - 15 mEq/L Comment: Starting from September , anion gap calculation no longer incorporates potassium. Please note the change. BUN 15 6 - 20 mg/dL Creatinine 0.8 0.5 - 0.9 mg/dL Glucose 92 65 - 99 mg/dL Calcium 8.2 (L) 8.3 - 10.2 mg/dL Specimen Performing Laboratory Plasma specimen [facility] DEPARTMENT OF PATHOLOGY AND GENOMIC MEDICINE [address] [place] [address] * Echocardiogram 2d limited (06/01/2017 4:43 PM) Specimen [place] [address] Narrative Echocardiography Report [address] [place] [address] Pat.Name:EUSEBIA ELVIS Pat.ID:[id number] .Date: 06/01/2017 Refer.MD:KAYCEE BRAR MD Exam Time: 4:13:00 PMStudy Type:Routine Echo Height:71inWeight:236lb BSA: 2.26 m2 DOBAge:1980,36Y Sex: FEMALEBP: 116/81 HR:94 bpmSonogrphr: NIEZ Claudio Pat. Stat.:Inpatient Room:[facility] 05 Study Status:Final Echo Event ID:[id number] Order ID:[id number] Reason for Study:Pericardial effusion;re-eval therapy guide Procedures:Portable, Stat, 2D Echo,Colorflow Doppler Limited Race:C SUMMARY: No pericardial effusion. Cannot exclude flail segment of tricuspid valve. Difficult to assess severity of tricuspid regurgitation, at least moderate. FINDINGS: LV: LV size is normal. Concentric left ventricular remodeling. LVEF is normal. Difficult to assess regional wall motion ; howeverit appears grossly normal. Estimated EF is 55-59% . RV: RV size is normal. RV systolic function is normal. LA: LA volume is difficult to assess. RA: RA volume is difficult to assess. AO: Aortic root diameter is normal. DAVID: No pericardial effusion. AV: No structural AV abnormalities noted. MV: No structural MV abnormalities noted. PV: No structural PV abnormalities noted. A trace of pulmonic regurgitation. TV: Cannot exclude flail segment. Difficult to assess severity oftricuspid regurgitation, at least moderate. MEASUREMENTS: 2D Parasternal Long [place] LVOT 2.2 cmAo An 2 cm LVIDd4.3 cmIndex 1.9 cm/m Ao Rtd 3 cm Index1.3 cm/m IVSd 1.1 cmLV Mass 152.6 g(87-129) LVPWd1 cmLVM Index 67.5 g/m2 LA Ds2.2 cmRWT 0.5 Signed 06/01/2017 07:34 PM Joel Pham M.D. Procedure Note Interface, Radiology Results In - 06/01/2017 7:34 PM CUSTOMER SERVICE ADMINISTRATOR Echocardiography Report [address] [place] [address] Pat.Name: ELVIS LAWS Pat.ID: [id number] .Date: 06/01/2017 Refer.MD: KAYCEE BRAR MD Exam Time: 4:13:00 PM Study Type:Routine Echo Height: 71in Weight: 236lb BSA: 2.26 m2 Age: 1 1980,36Y Sex: FEMALE BP: 116/81 HR: 94 bpm Sonogrphr: INEZ Claudio Pat. Stat.:Inpatient Room: [facility] 05 Study Status:Final Echo Event ID:[id number] Order ID: [id number] Reason for Study:Pericardial effusion;re-eval therapy guide Procedures:Portable, Stat, 2D Echo,Colorflow Doppler Limited Race: C SUMMARY: No pericardial effusion. Cannot exclude flail segment of tricuspid valve. Difficult to assess severity of tricuspid regurgitation, at least moderate. FINDINGS: LV: LV size is normal. Concentric left ventricular remodeling. LV EF is normal. Difficult to assess regional wall motion; however it appears grossly normal. Estimated EF is 55-59%. RV: RV size is normal. RV systolic function is normal. LA: LA volume is difficult to assess. RA: RA volume is difficult to assess. AO: Aortic root diameter is normal. DAVID: No pericardial effusion. AV: No structural AV abnormalities noted. MV: No structural MV abnormalities noted. PV: No structural PV abnormalities noted. A trace of pulmonic regurgitation. TV: Cannot exclude flail segment. Difficult to assess severity of tricuspid regurgitation, at least moderate. MEASUREMENTS: 2D Parasternal Long [place] LVOT 2.2 cm Ao An 2 cm LVIDd 4.3 cm Index 1.9 cm/m Ao Rtd 3 cm Index 1.3 cm/m IVSd 1.1 cm LV Mass 152.6 g (87-129) LVPWd 1 cm LVM Index 67.5 g/m2 LA Ds 2.2 cm RWT 0.5 Signed 06/01/2017 07:34 PM Joel Pham M.D. * Cv concrete plant laborer procedure (06/01/2017 4:30 PM) Specimen Performing Laboratory [facility] [address] [place] [address] * POC ACT (06/01/2017 4:20 PM) Only the most recent of 2 results within the time period is included. Component Value Ref Range Activated clotting time, 170 seconds POC Specimen Performing Laboratory Blood after 12/02/2016 Insurance Payer Benefit Subscriber ID Type Phone Address Plan / Group BRE DÍAZ xxxxxxxxxxx HMO HMO/POS Work: [id number] [facility] [place] [phone] Home:
[2017-12-03 19:00] VITALS: BP 98/61
[2017-12-03] MEDS ORDERED: SODIUM CHLORIDE 0.9% 1000ML 1,000 ML IV ONE (19:00)
[2017-12-03 19:13] LABS: BASOPHILS % 0.7 % (0.0-1.0); EOSINOPHILS # (AUTO) 0.1 (0.0-0.4); EOSINOPHILS % 2.8 % (0.0-6.0); HEMATOCRIT 37.9 % (34.2-44.1); LYMPHOCYTES # (AUTO) 1.4 (1.0-3.2); LYMPHOCYTES % 32.4 % (18.0-39.1); MEAN CORPUSCULAR HEMOGLOBIN 31.3 pg (28-32); MEAN CORPUSCULAR HGB CONC 34.3 g/dL (31-35); MEAN CORPUSCULAR VOLUME 91.3 fL (81-99); MONOCYTES # (AUTO) 0.6 (0.2-0.8); MONOCYTES % 13.8 % (4.4-11.3); NEUTROPHILS # (AUTO) 2.1 (2.1-6.9); NEUTROPHILS % 50.3 % (38.7-80.0); PLATELET COUNT 242 x10e3/uL (140-360); RED BLOOD COUNT 4.15 x10e6/uL (3.6-5.1)
[2017-12-03 19:16] LABS: CALCIUM IONIZED 1.1 mmol/L (1.09-1.30)
[2017-12-03 19:33] LABS: ALANINE AMINOTRANSFERASE 16 IU/L (0-55); ALBUMIN 3.8 g/dL (3.5-5.0); ALBUMIN/GLOBULIN RATIO 1.2 (0.8-2.0); ALKALINE PHOSPHATASE 73 IU/L (40-150); ANION GAP 11.5 mmol/L (8-16); BLOOD UREA NITROGEN 7 mg/dL (7-26); BUN/CREATININE RATIO 9 (6-25); CARBON DIOXIDE 22 mmol/L (22-29); CHLORIDE 111 mmol/L (98-107); CREATININE, SERUM 0.78 mg/dL (0.57-1.11); EST GLOMERULAR FILTRATION RATE > 60 ML/MIN (60-); GLUCOSE 91 mg/dL (74-118); MAGNESIUM 1.7 MG/DL (1.3-2.1); POTASSIUM 3.5 mmol/L (3.5-5.1); SODIUM 141 mmol/L (136-145)
[2017-12-03 19:53] LABS: FREE THYROXINE INDEX 2.1171 (1.4-3.8); THYROID STIMULATING HORMONE 3.842 uIU/mL (0.350-4.940)
[2017-12-03 20:00] VITALS: BP 120/73
[2017-12-03] MEDS: SODIUM CHLORIDE 0.9% 1000ML 1,000 ML IV SCH (20:23)
[2017-12-03] MEDS ORDERED: IOPAMIDOL 370 MG/ML 200 ML INFUS..BTL INJ ONE (20:53)
[2017-12-03] MEDS ORDERED: SODIUM CHLORIDE 0.9% 50ML 50 ML ONE (20:53)
--- NOTE | 2017-12-03 22:07 | Diagnostic Imaging Report ---
EXAM: CT Abdomen and Pelvis WITH contrast INDICATION: Abdominal pain COMPARISON: None. TECHNIQUE: Abdomen and pelvis were scanned utilizing a multidetector helical scanner from the lung base to the pubic symphysis after administration of IV contrast. Coronal and sagittal reformations were obtained. Routine protocol was performed. Scan was performed when during portal venous phase. IV CONTRAST: 100 mL of Isovue-370 ORAL CONTRAST: Water RADIATION DOSE: Total DLP: 737.72 mGy*cm Estimated effective dose: (DLP x 0.015 x size factor) mSv COMPLICATIONS: None FINDINGS: LINES and TUBES: None. LOWER THORAX: Unremarkable HEPATOBILIARY: The liver is diffuse hypodense compared to the spleen, consistent with diffuse hepatic diffuse hepatic steatosis. No focal hepatic lesions. No biliary ductal dilation. GALLBLADDER: There are cholecystectomy clips. SPLEEN: No splenomegaly. PANCREAS: No focal masses or ductal dilatation. ADRENALS: No adrenal nodules KIDNEYS/URETERS: Kidneys enhance symmetrically. No hydronephrosis. No cystic or solid mass lesions. No stones. GI TRACT: No abnormal distention, wall thickening, or evidence of bowel obstruction. Appendix is normal. PELVIC ORGANS/BLADDER: Unremarkable. LYMPH NODES: No lymphadenopathy. VESSELS: There is mild atherosclerotic disease in the aorta and major arterial branches. PERITONEUM / RETROPERITONEUM: No free air or fluid. BONES: There is evidence of postsurgical spine fusion from L3 through S1 with transpedicular screws, interlocking rods and intervertebral disc spacers. SOFT TISSUES: Unremarkable. IMPRESSION: 1. No evidence of acute intra-abdominal or pelvic abnormality. 2. Postsurgical changes in the lumbar spine. 3. Hepatic steatosis. 4. Cholecystectomy. Signed by: Dr. Jose Luis Cameron M.D. on 12/03/2017 10:03 PM
[2017-12-03] MEDS: LEVOFLOXACIN 500MG/D5W 100ML 100 ML IV SCH (22:12)
[2017-12-03] MEDS: TOPIRAMATE 100 MG TAB PO SCH (22:15)
[2017-12-04] VITALS (7 sets, daily range): BP systolic 98–118; BP diastolic 57–71
[2017-12-04] MEDS: METRONIDAZOLE 500MG/NS 100ML 100 ML IV SCH ×4 (00:07→21:49)
[2017-12-04] MEDS: SODIUM CHLORIDE 0.9% 1000ML 1,000 ML IV SCH ×3 (03:05→21:48)
[2017-12-04] MEDS: TOPIRAMATE 100 MG TAB PO SCH ×2 (08:33→16:42)
[2017-12-04] MEDS ORDERED: TOPIRAMATE 100 MG TAB PO SCH (09:00)
[2017-12-04] MEDS ORDERED: PANTOPRAZOL 40MG/SOD CHL 0.9% 250 ML IV SCH (15:45)
--- NOTE | 2017-12-04 15:59 | Operative Report ---
DATE OF PROCEDURE: December 04, 2017 REFERRING PHYSICIAN: Dr. Alexia Valles. PROCEDURE PERFORMED: Esophagogastroduodenoscopy with biopsies and pyloric channel dilatation. INDICATIONS FOR PROCEDURE: Upper abdominal pain, heartburn and indigestion. MEDICATION: Patient was done under MAC. Please see anesthesiologist's note. PROCEDURE: With patient in the left lateral decubitus position, flexible fiberoptic Olympus gastroscope was introduced into the esophagus under direct visualization without any difficulty. There was some patchy erythema noted in distal esophagus. The scope was then advanced with ease into the stomach and multiple erosions were noted in the antrum and the body of the stomach. Pylorus was somewhat strictured and that was dilated to size 20 mm per TTS balloon dilators. The scope was then advanced with ease to the 2nd portion of the duodenum. It was then withdrawn slowly. Mucosa overlying the proximal 2nd portion appeared to be within normal limits. Several duodenal ulcers were noted in the duodenal bulb without active bleeding or stigmata of recent hemorrhage. The scope was then withdrawn back into the stomach and retroflexed and mucosa overlying the fundus and the cardia appeared to be within normal limits. The scope was then straightened out and was subsequently withdrawn. Patient tolerated the procedure well. IMPRESSION: 1. Distal esophagitis. 2. Severe erosive gastritis, biopsied. Biopsy sent to stain for H. pylori. 3. Pyloric channel stricture dilated to size 20 mm per TTS balloon dilators. 4. Several duodenal ulcers, bulb without active bleeding or stigmata of recent hemorrhage. PLAN: Follow up histology. Initiate Protonix drip. Job#: [id number] cc:ALEXIA VALLES MD
[2017-12-04] MEDS ORDERED: PANTOPRAZOLE 40 MG 10ML VIAL IV NR (16:00)
[2017-12-04] MEDS: PANTOPRAZOL 40MG/SOD CHL 0.9% 50 ML IV SCH ×2 (16:39→21:49)
[2017-12-04] MEDS: DONNATAL/LIDOCAINE/MAALOX 30 ML SUSP PO PRN (16:40)
[2017-12-04] MEDS: LEVOFLOXACIN 500MG/D5W 100ML 100 ML IV SCH (18:09)
[2017-12-04] MEDS ORDERED: PROPOFOL IV EMULSION 10 MG/ML 50 ML VIAL ONE (18:33)
[2017-12-04] MEDS ORDERED: LIDOCAINE HCL 2% LOCAL INJ 5 ML SDV VIAL INJ ONE (18:33)
[2017-12-04] MEDS ORDERED: MIDAZOLAM HCL 2 MG/2 ML VIAL ONE (20:20)
[2017-12-04] MEDS ORDERED: FENTANYL CITRATE/PF 100MCG/2 ML INJ ONE (20:20)
[2017-12-05] VITALS: BP 101/70
[2017-12-05] MEDS: PANTOPRAZOL 40MG/SOD CHL 0.9% 50 ML IV SCH ×5 (03:03→21:45)
[2017-12-05] MEDS: SODIUM CHLORIDE 0.9% 1000ML 1,000 ML IV SCH ×3 (04:05→20:08)
[2017-12-05 05:00] VITALS: BP 102/63
[2017-12-05] MEDS: METRONIDAZOLE 500MG/NS 100ML 100 ML IV SCH ×3 (05:11→21:45)
[2017-12-05 08:00] VITALS: BP 113/63
[2017-12-05] MEDS: TOPIRAMATE 100 MG TAB PO SCH ×2 (08:33→16:36)
[2017-12-05 10:51] VITALS: BP 113/63
[2017-12-05] MEDS: DONNATAL/LIDOCAINE/MAALOX 30 ML SUSP PO PRN ×2 (11:48→18:55)
[2017-12-05 11:51] VITALS: BP 107/61
[2017-12-05] MEDS: LEVOFLOXACIN 500MG/D5W 100ML 100 ML IV SCH (18:07)
[2017-12-05 20:00] VITALS: BP 107/62
[2017-12-06] VITALS (8 sets, daily range): BP systolic 90–112; BP diastolic 48–69
[2017-12-06] MEDS ORDERED: SUCRALFATE 1 GM TAB PO STA (00:11)
[2017-12-06] MEDS: PANTOPRAZOL 40MG/SOD CHL 0.9% 50 ML IV SCH ×5 (02:05→23:37)
[2017-12-06] MEDS: SODIUM CHLORIDE 0.9% 1000ML 1,000 ML IV SCH ×3 (02:05→21:01)
[2017-12-06] MEDS: METRONIDAZOLE 500MG/NS 100ML 100 ML IV SCH ×3 (05:17→21:01)
[2017-12-06] MEDS: DONNATAL/LIDOCAINE/MAALOX 30 ML SUSP PO SCH ×4 (07:00→23:37)
[2017-12-06] MEDS: SUCRALFATE 1 GM TAB PO SCH ×4 (07:53→21:01)
[2017-12-06] MEDS: TOPIRAMATE 100 MG TAB PO SCH ×2 (08:01→16:54)
[2017-12-06] MEDS ORDERED: ACETAMINOPHEN 325 MG TAB PO PRN (14:30)
[2017-12-06] MEDS: LEVOFLOXACIN 500MG/D5W 100ML 100 ML IV SCH (19:15)
[2017-12-06] MEDS ORDERED: SODIUM CHLORIDE 0.9% 1000ML 1,000 ML ONE (20:54)
[2017-12-07] VITALS: BP 106/53
[2017-12-07 04:00] VITALS: BP 99/55
[2017-12-07] MEDS: PANTOPRAZOL 40MG/SOD CHL 0.9% 50 ML IV SCH (04:00)
[2017-12-07] MEDS: METRONIDAZOLE 500MG/NS 100ML 100 ML IV SCH (05:23)
[2017-12-07] MEDS: DONNATAL/LIDOCAINE/MAALOX 30 ML SUSP PO SCH (05:24)
[2017-12-07] MEDS: SODIUM CHLORIDE 0.9% 1000ML 1,000 ML IV SCH (06:58)
[2017-12-07 08:09] VITALS: BP 104/56
[2017-12-07] MEDS: TOPIRAMATE 100 MG TAB PO SCH (09:16)
[2017-12-07] MEDS: SUCRALFATE 1 GM TAB PO SCH (09:16)
== END 2017-12-07 11:22 | disposition home or self-care (01) ==
LOC: IMCU 18:16
PROVIDERS: ADMIT Family Medicine; ATTEND Family Medicine
DX: K26.9 Duodenal ulcer, unspecified as acute or chronic, without hemorrhage or perforation (principal); K21.0 Gastro-esophageal reflux disease with esophagitis; K29.00 Acute gastritis without bleeding; K31.1 Adult hypertrophic pyloric stenosis; G47.33 Obstructive sleep apnea (adult) (pediatric); I10 Essential (primary) hypertension; Z90.49 Acquired absence of other specified parts of digestive tract
CPT/HCPCS: 36415; 43239; 43245; 74177; 80053; 82330; 83735; 84436; 84443; 84479; 84702; 85025; 88305; 88312; C1726; G0378 ×5; J1956 ×4; J2001; J2250; J7030 ×5; Q9967; 43233

== ENCOUNTER → 2018-02-08 | Day surgery (SDC) | payer OTHER ==
[~2018-02-08] MED LIST changes: +CARAFATE1 GM PO; +FENTANYL CITRATE/PF 100MCG/2 ML INJ ONE; +MIDAZOLAM HCL 2 MG/2 ML VIAL ONE; +ONDANSETRON ODT8 MG PO; +PROPOFOL IV EMULSION 10 MG/ML 50 ML VIAL ONE; +TYLENOL WITH C1 EACH PO
--- NOTE | 2018-02-08 18:40 | Operative Report ---
DATE OF PROCEDURE: February 08, 2018 REFERRING PHYSICIAN: Dr. Alexia Valles. PROCEDURE PERFORMED: Esophagogastroduodenoscopy with esophageal dilatation and pyloric channel dilatation and biopsies. INDICATIONS FOR PROCEDURE: Dysphagia, nausea and vomiting. MEDICATION: Patient was done under MAC. Please see anesthesiologist's note. PROCEDURE: With patient in the left lateral decubitus position, the flexible fiberoptic Olympus gastroscope was introduced into the esophagus under direct visualization without any difficulty. There was some patchy erythema noted in the distal esophagus. The esophagus was then dilated to size 52-[place] Hanna. The scope was then advanced with ease into the stomach, and mucosa overlying the antrum revealed some diffuse intense erythema and multiple erosions. The mucosa overlying the body revealed some patchy areas of erythema. Biopsies were obtained and sent to stain for H. pylori. The pylorus was dilated to size 20 mm per TTS balloon dilators. It was traversed with ease, and the scope was advanced all the way to the 2nd portion of the duodenum. The scope was then withdrawn slowly. Mucosa overlying the proximal 2nd portion and the duodenal bulb appeared to be within normal limits. The scope was then withdrawn back into the stomach and retroflexed, and the mucosa overlying the fundus and the cardia appeared to be within normal limits. The scope was then straightened out. It was subsequently withdrawn. Patient tolerated the procedure well. IMPRESSION: 1. Distal esophagitis. 2. Esophagus dilated to size 52-[place] Hanna. 3. Gastritis, erosive, biopsied. Biopsies sent to stain for H. pylori. 4. Pyloric channel stricture dilated to size 20 mm per TTS balloon dilators. PLAN: Follow up histology. Resume Protonix 40 mg 1 p.o. a.c. b.i.d. Job#: [id number] EV cc:ALEXIA VALLES MD
== END | disposition home or self-care (01) ==
LOC: OR 13:12
PROVIDERS: ATTEND Internal Medicine Gastroenterology
DX: K20.9 Esophagitis, unspecified (principal); K25.9 Gastric ulcer, unspecified as acute or chronic, without hemorrhage or perforation; K31.1 Adult hypertrophic pyloric stenosis; G89.29 Other chronic pain; K21.9 Gastro-esophageal reflux disease without esophagitis; G47.30 Sleep apnea, unspecified; Z88.2 Allergy status to sulfonamides; Z88.1 Allergy status to other antibiotic agents; Z88.3 Allergy status to other anti-infective agents; Z91.018 Allergy to other foods
CPT/HCPCS: 43239; 43245; 43450; 81025; C1726; J2250; 43235

== ENCOUNTER 2018-02-09 14:12 | Emergency (ER) | payer OTHER ==
[~2018-02-09] VITALS: Ht 180.3 cm; Wt 103.4 kg
[~2018-02-09 14:12] MED LIST changes: -FENTANYL CITRATE/PF 100MCG/2 ML INJ ONE; -MIDAZOLAM HCL 2 MG/2 ML VIAL ONE; -PROPOFOL IV EMULSION 10 MG/ML 50 ML VIAL ONE; -TYLENOL WITH C1 EACH PO
[2018-02-09 15:32] LABS: CLARITY,URINE CLEAR (CLEAR); COLOR,URINE YELLOW (YELLOW); LEUKOCYTE ESTERASE ,URINE NEGATIVE (NEGATIVE); NITRITE,URINE NEGATIVE (NEGATIVE); PROTEIN,URINE DIPSTICK NEGATIVE (NEGATIVE)
[2018-02-09 15:33] LABS: BILIRUBIN,URINE NEGATIVE (NEGATIVE); KETONES,URINE NEGATIVE (NEGATIVE); URINE UROBILINOGEN 0.2 mg/dL (0.2 - 1)
[2018-02-09 15:45] LABS: BASOPHILS # (AUTO) 0.1 (0.0-0.1); BASOPHILS % 0.9 % (0.0-1.0); EOSINOPHILS # (AUTO) 0.2 (0.0-0.4); EOSINOPHILS % 1.9 % (0.0-6.0); HEMATOCRIT 41.2 % (34.2-44.1); HEMOGLOBIN 13.5 g/dL (12.0-16.0); LYMPHOCYTES % 19.9 % (18.0-39.1); MEAN CORPUSCULAR HGB CONC 32.8 g/dL (31-35); MEAN CORPUSCULAR VOLUME 94.5 fL (81-99); MONOCYTES # (AUTO) 0.8 (0.2-0.8); MONOCYTES % 8.2 % (4.4-11.3); NEUTROPHILS % 68.9 % (38.7-80.0); PLATELET COUNT 373 x10e3/uL (140-360); RED BLOOD COUNT 4.36 x10e6/uL (3.6-5.1); RED CELL DISTRIBUTION WIDTH 12.9 % (11.7-14.4)
[2018-02-09 15:52] LABS: BACTERIA,URINE FEW /HPF; EPITHELIAL CELLS,URINE FEW /LPF; RBC,URINE 0-5 /HPF (0-5); WBC,URINE (MAN) 0-5 /HPF (0-5)
--- NOTE | 2018-02-09 16:03 | Diagnostic Imaging Report ---
EXAM: ABDOMEN ACUTE SERIES W/PA CXR, DATE: 02/09/2018 2:40 PM INDICATION: Right upper quadrant pain after endoscopy yesterday. Concern for pneumoperitoneum. COMPARISON: 09/05/16 FINDINGS: LINES/TUBES: None BOWEL PATTERN: No evidence for obstruction. SOFT TISSUES: Cholecystectomy clips. No free air beneath the diaphragm. Chest: Clear. BONES: Status post lumbosacral fusion from L2 to S1 with transpedicular screws system and bone grafts. IMPRESSION: No evidence of pneumoperitoneum as per clinical query. Nonobstructive bowel gas pattern. . Signed by: Dr. Christoph Alberto M.D. on 02/09/2018 4:00 PM
[2018-02-09] MEDS ORDERED: TYLENOL WITH C1 EACH PO (16:11)
[2018-02-09 16:36] LABS: INR 1.04; PARTIAL THROMBOPLASTIN TIME 33.4 seconds (23.8-35.5); PROTHROMBIN TIME 12.8 seconds (11.9-14.5)
[2018-02-09 16:47] LABS: ALANINE AMINOTRANSFERASE 13 IU/L (0-55); ALBUMIN 3.6 g/dL (3.5-5.0); ALKALINE PHOSPHATASE 66 IU/L (40-150); AMYLASE 43 U/L (25-125); ANION GAP 12.6 mmol/L (8-16); BLOOD UREA NITROGEN 10 mg/dL (7-26); BUN/CREATININE RATIO 13 (6-25); CALCIUM 8.8 mg/dL (8.4-10.2); CARBON DIOXIDE 23 mmol/L (22-29); CHLORIDE 108 mmol/L (98-107); CREATININE, SERUM 0.79 mg/dL (0.57-1.11); EST GLOMERULAR FILTRATION RATE > 60 ML/MIN (60-); GLUCOSE 96 mg/dL (74-118); LIPASE 21 U/L (8-78); MAGNESIUM 1.9 MG/DL (1.3-2.1); POTASSIUM 3.6 mmol/L (3.5-5.1); SODIUM 140 mmol/L (136-145)
[2018-02-09 17:08] VITALS: BP 102/63
== END 2018-02-09 17:13 | disposition home or self-care (01) ==
LOC: ER 14:12
DX: R10.11 Right upper quadrant pain (principal); R11.0 Nausea
CPT/HCPCS: 36415; 74022; 80053; 81001; 82150; 83605; 83690; 83735; 85025; 85610; 85730; 99284

== ENCOUNTER → 2018-03-30 | Day surgery (SDC) | payer OTHER ==
[~2018-03-30] MED LIST changes: +FENTANYL CITRATE/PF 100MCG/2 ML INJ ONE; +HYOSCYAMINE SULFATE 0.5 MG/ML INJ ONE; +LIDOCAINE HCL 2% LOCAL INJ 5 ML SDV VIAL INJ ONE; +MIDAZOLAM HCL 2 MG/2 ML VIAL ONE; +PANTOPRAZOLE SO40 MG PO; +PROPOFOL IV EMULSION 10 MG/ML 50 ML VIAL ONE; +TYLENOL WITH C1 EACH PO; +[UNRECOGNIZED DRUG - OTHER] INJ
--- NOTE | 2018-03-30 18:35 | Operative Report ---
DATE OF PROCEDURE: March 30, 2018 REFERRING PHYSICIAN: Dr. Alexia Valles. PROCEDURE PERFORMED: Colonoscopy with biopsies. INDICATIONS FOR COLONOSCOPY: Guaiac positive stools. MEDICATION: Patient was done under MAC. Please see anesthesiologist's note. PROCEDURE: With the patient in lateral decubitus position, flexible fiberoptic Olympus colonoscope was inserted into the rectum with ease and advanced all the way to the cecum. The scope was then withdrawn slowly. Mucosa overlying the cecum, ascending colon, transverse colon, descending and sigmoid appeared to be within normal limits. Mucosa overlying the rectum revealed some patchy intense erythema and moderate edema and biopsies were obtained. The scope was then retroflexed into the distal rectum and small internal hemorrhoids were noted, none of which was actively bleeding. The scope was then straightened out. It was subsequently withdrawn. Patient tolerated the procedure well. IMPRESSION 1. Proctitis, mild. 2. Internal hemorrhoids, none actively bleeding. PLAN: Follow up histology. Initiate high-fiber low-fat diet. Initiate high-fiber supplement. Start VSL #3 one p.o. daily. Job#: [id number] [facility] cc:ALEXIA VALLES MD
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
--- OUTSIDE RECORDS SUMMARY | 2018-04-16 09:10 | XMS REPORT | Clinical Summary ---
Author Author [facility] Address Unknown Phone Unavailable Care Team Providers Care Service Director Name Role Phone PCP Unavailable Allergies Active [...] tablet by mouth 20 tablet 0 06/04/20 06/14/20 (TYLENOL #3) 300-30 mg every 4 (four) hours as 17 17 per tablet needed for up to 10 days. Max Daily Amount: 6 tablets Active Problems Not on file Encounters Date Type Specialty Care Team Description 06/04/2017 Emergency Emergency Medicine Jose Carlos Victor MD Chest pain, unspecified type (Primary Dx);Generalized abdominal pain;Shortness of breath 06/04/2017 Orders Only General Internal Medicine after 03/31/2017 Social History Tobacco Use Types Packs/Day Years Used Date Never Smoker Alcohol Use Drinks/Week oz/Week Comments No Sex Assigned at Date Recorded Not on file Last Filed Vital Signs Vital Sign Reading Time Taken Blood Pressure 106/70 06/04/2017 1:10 PM INFORMATION TECHNOLOGY DATA ANALYST Pulse 96 06/04/2017 1:10 PM INFORMATION TECHNOLOGY DATA ANALYST Temperature 37 C (98.6 F) 06/04/2017 1:10 PM INFORMATION TECHNOLOGY DATA ANALYST Respiratory Rate 16 06/04/2017 1:10 PM INFORMATION TECHNOLOGY DATA ANALYST Oxygen Saturation 100% 06/04/2017 1:10 PM INFORMATION TECHNOLOGY DATA ANALYST Inhaled Oxygen - - Concentration Weight 107.5 kg (237 lb) 06/04/2017 9:09 AM INFORMATION TECHNOLOGY DATA ANALYST Height 180.3 cm (5' 11") 06/04/2017 9:09 AM INFORMATION TECHNOLOGY DATA ANALYST Body Mass Index 33.05 06/04/2017 9:09 AM INFORMATION TECHNOLOGY DATA ANALYST Plan of Treatment Not on file Results * EKG-SCANNED (06/05/2017 10:30 AM) * CT chest for pulmonary embolus (06/04/2017 11:51 AM) Specimen Performing Laboratory [facility] Narrative FINAL REPORT Chest CT with contrast, [...] MD Report Verified Date/Time:06/04/2017 12:17:40 Reading Location: [facility] B1 C013X Ortho Consult Reading Room Procedure Note Interface, External Ris In - 06/04/2017 12:19 PM INFORMATION TECHNOLOGY DATA ANALYST FINAL REPORT Chest CT with contrast, PE [...] Report Verified Date/Time: 06/04/2017 12:17:40 Reading Location: [facility] B1 C013X Ortho Consult Reading Room * CT abdomen/pelvis with IV contrast (06/04/2017 11:51 AM) Specimen Performing Laboratory [facility] Narrative FINAL REPORT Chest CT with contrast, [...] MD Report Verified Date/Time:06/04/2017 12:17:40 Reading Location: [facility] B1 C013X Ortho Consult Reading Room Procedure Note Interface, External Ris In - 06/04/2017 12:19 PM INFORMATION TECHNOLOGY DATA ANALYST FINAL REPORT Chest CT with contrast, PE [...] Report Verified Date/Time: 06/04/2017 12:17:40 Reading Location: [facility] B1 C013X Ortho Consult Reading Room * ECG 12 lead (06/04/2017 9:36 AM) Specimen Performing Laboratory [facility] Narrative Ventricular Rate 112 BPM Atrial Rate 112 BPM P-R Interval 142 ms QRS Duration 76 ms Q-T Interval 314 ms QTC Calculation(Bazett) 428 ms P Norvell 56 degrees R Norvell 33 degrees T Norvell 37 degrees Sinus tachycardia Otherwise normal ECG When compared with ECG of 11-MAY-2015 12:04, No significant change was found Confirmed by MD PEACE YOCHAI ([id number]) on 06/05/2017 7:12:12 AM Procedure Note Interface, External Ris In - 06/05/2017 7:12 AM INFORMATION TECHNOLOGY DATA ANALYST Ventricular Rate 112 BPM Atrial Rate 112 BPM P-R Interval 142 ms QRS Duration 76 ms Q-T Interval 314 ms QTC Calculation(Bazett) 428 ms P Norvell 56 degrees R Norvell 33 degrees T Norvell 37 degrees Sinus tachycardia Otherwise normal ECG When compared with ECG of 11-MAY-2015 12:04, No significant change was found Confirmed by MD PEACE YOCHAI ([id number]) on 06/05/2017 7:12:12 AM * Screen, urine (06/04/2017 9:28 AM) Component Value Ref Range Preg Test, Ur Negative Specimen Performing Laboratory Urine - Urine, Voided [address] [address] * PT/aPTT (06/04/2017 9:27 AM) Component Value Ref Range Protime 20.1 (H) 11.7 - 14.7 seconds INR 1.7 <=5.9 PTT 39.4 (H) 22.5 - 36.0 seconds Specimen Performing Laboratory Blood - Line, Venous [address] [address] Narrative RECOMMENDED COUMADIN/WARFARIN INR THERAPY RANGES STANDARD DOSE: 2.0 - 3.0 Includes: PROPHYLAXIS for venous thrombosis, systemic embolization; TREATMENT for venous thrombosis and/or pulmonary embolus. HIGH RISK: Target INR is 2.5-3.5 for patients with mechanical heart valves. * CBC with platelet count + automated diff (06/04/2017 9:27 AM) Component Value Ref Range WBC 10.6 (H) 3.5 - 10.5 K/L RBC 4.33 3.93 - 5.22 M/L Hemoglobin 13.0 11.2 - 15.7 GM/DL Hematocrit [...] # Neutros 7.01 (H) 1.56 - 6.13 K/L # Lymphs 2.44 1.18 - 3.74 K/L # Monos 0.71 (H) 0.24 - 0.36 K/L # Eos 0.31 0.04 - 0.36 K/L # Baso 0.07 0.01 - 0.08 K/L Immature 0 0 - 1 % Granulocytes-Relative Specimen Performing Laboratory Blood - Line, [place] [address] * CBC with platelet count + automated diff (06/04/2017 9:27 AM) Specimen Performing Laboratory Blood Narrative The following orders were created for panel order CBC with platelet count + automated diff. Procedure Abnormality Status --------- ------ CBC with platelet count ...[[id number]]AbnormalFinal result Please view results for these tests [...] Specimen Performing Laboratory Blood - Line, Venous [address] [address] * POC-Lactic Acid, Venous (06/04/2017 9:23 AM) Component Value Ref Range POC-Lactic Acid, Venous 1.7Comment: TESTED AT [address] 0.9 - 1.7 mmol/[place] [address] Specimen Performing Laboratory Blood [address] [address] * POC-Glucose meter (06/04/2017 9:22 AM) Component Value Ref Range POC-Glucose Meter 131 (H)Comment: TESTED AT [address] 70 - 110 mg/[place] [address] Specimen Performing Laboratory Blood [address] [address] after 03/31/2017
== END | disposition home or self-care (01) ==
LOC: ENDO 13:30
PROVIDERS: ATTEND Internal Medicine Gastroenterology
DX: K62.89 Other specified diseases of anus and rectum (principal); K64.8 Other hemorrhoids; K59.00 Constipation, unspecified; K25.9 Gastric ulcer, unspecified as acute or chronic, without hemorrhage or perforation; K29.70 Gastritis, unspecified, without bleeding; K21.9 Gastro-esophageal reflux disease without esophagitis; K20.9 Esophagitis, unspecified; K22.8 Other specified diseases of esophagus; I10 Essential (primary) hypertension; G47.33 Obstructive sleep apnea (adult) (pediatric); F41.9 Anxiety disorder, unspecified; Z88.1 Allergy status to other antibiotic agents; Z91.013 Allergy to seafood; Z91.018 Allergy to other foods; Z88.2 Allergy status to sulfonamides; Z88.8 Allergy status to other drugs, medicaments and biological substances; Z68.31 Body mass index [BMI] 31.0-31.9, adult; Z86.718 Personal history of other venous thrombosis and embolism
CPT/HCPCS: 45380; 81025; J1980; J2001; J2250; 45378

== ENCOUNTER 2018-05-10 19:42 | Emergency (ER) | payer OTHER ==
[~2018-05-10] VITALS: Ht 180.3 cm; Wt 103.4 kg
[~2018-05-10 19:42] MED LIST changes: -FENTANYL CITRATE/PF 100MCG/2 ML INJ ONE; -HYOSCYAMINE SULFATE 0.5 MG/ML INJ ONE; -LIDOCAINE HCL 2% LOCAL INJ 5 ML SDV VIAL INJ ONE; -MIDAZOLAM HCL 2 MG/2 ML VIAL ONE; -PROPOFOL IV EMULSION 10 MG/ML 50 ML VIAL ONE
--- OUTSIDE RECORDS SUMMARY | 2018-05-10 19:45 | XMS REPORT | Clinical Summary ---
Author Author [employer] Organization [employer] Address Unknown Phone Unavailable Care Team Providers Care Management Tech Name Role Phone Eliseo Morris MD PCP Unavailable Allergies Active Allergy Reactions Severity Noted Date Comments Chlorhexidine High Blisters Other 05/11/2015 chlorahexadine and pineapple Pineapple 07/05/2015 Shellfish Containing 05/11/2015 Products Sulfa (Sulfonamide Hives 05/11/2015 Antibiotics) Sulfamethoxazole-Trimetho Hives 05/11/2015 prim Current Medications Prescription Sig. Disp. Refills Start End Date Status Date topiramate (TOPAMAX) 100 Take 100 mg by mouth 2 Active MG tablet (two) times a day. sucralfate (CARAFATE) 100 Take 1 g by mouth Active mg/mL suspension nightly. ondansetron (ZOFRAN) 8 MG Take 8 mg by mouth 2 Active tablet (two) times a day as needed for nausea or vomiting. pantoprazole (PROTONIX) Take 40 mg by mouth 2 Active 40 MG EC tablet (two) times a day. SUMAtriptan succinate Inject 3 mg under the Active (ZEMBRACE SYMTOUCH) 3 skin as needed. mg/0.5 mL pen injector topiramate (TOPAMAX) 50 Take 100 mg by [...] total) by mouth daily. 17 18 ued esomeprazole (NexIUM) 40 Take 40 mg by mouth daily 04/11/20 Discontin MG capsule before breakfast. 18 ued ergocalciferol (VITAMIN Take 50,000 Units by 04/11/20 Discontin D2) 50,000 unit capsule mouth once a week. 18 ued plecanatide (TRULANCE) 3 Take 1 tablet (3 mg 30 tablet 5 10/18/19 11/09/19 Discontin mg tablet total) by mouth daily. 18 18 ued Can be taken with or without food. nebivolol (BYSTOLIC) 5 MG Take 5 mg by mouth every 04/11/20 Discontin tablet evening. 18 ued multivitamin capsule Take 1 capsule by mouth 04/11/20 Discontin daily. 18 ued acetaminophen-codeine Take 1 tablet by mouth 20 [...] 1 tablet (50 mg 20 tablet 0 05/10/20 05/24/20 tablet total) by mouth every 6 18 18 (six) hours as needed for moderate pain for up to 14 days. Active Problems Problem Noted Date Pyloric stenosis 04/12/2018 Last Assessment & Plan: The patient has been previously diagnosed with pyloric stenosis, likely due to history of peptic ulcer disease. The patient will see her outside livestock buyer tomorrow for a possible repeat dilation. I will also send the patient for a gastric emptying study as well as an upper GI with small bowel follow-through. The patient was told to continue her PPI and Carafate medications. The patient will call the office if the dilations proved to be ineffective for possible laparoscopic pyloroplasty. I also recommended the patient follow up with her bar waiter/waitress regarding her joint pain, muscle pain and malar fascial butterfly rash. Right upper quadrant abdominal pain 04/12/2018 Last Assessment & Plan: The abdominal pain is likely due to the pyloric stenosis, which is associated with nausea and vomiting. I will order a gastric emptying study and upper GI with small bowel follow-through. Bloating 04/12/2018 Non-intractable cyclical vomiting with nausea 04/12/2018 Asymptomatic cholelithiasis 11/08/2017 SOB (shortness of breath) 06/05/2017 Chest pain 06/05/2017 Non-rheumatic tricuspid valve insufficiency 06/05/2017 Deep vein thrombosis (DVT) ([facility]) 06/04/2017 Deep venous thrombosis of lower extremity ([facility]) 05/15/2017 Essential hypertension 12/05/2016 Acute deep vein thrombosis (DVT) of femoral vein ([facility]) 12/05/2016 Encounters Date Type Specialty Care Team Description 05/10/2018 [facility] Radiology Blair Junior MD Bloating; Encounter Nausea and vomiting, intractability of vomiting not specified, unspecified vomiting type; Pain of upper abdomen 05/06/2018 [facility] Radiology Blair Junior MD Bloating; Encounter Nausea and vomiting, intractability of vomiting not specified, unspecified vomiting type; Pain of upper abdomen 05/06/2018 Telephone General Surgery Jennifer Smith RN 04/15/2018 Telephone General Surgery Blair Junior MD 04/12/2018 Orders Only General Surgery Blair Junior MD Bloating (Primary Dx); Nausea and vomiting, intractability of vomiting not specified, unspecified vomiting type; Pain of upper abdomen 04/11/2018 Office Visit General Surgery Blair Junior MD Pyloric stenosis (Primary Dx); Right upper quadrant abdominal pain; Bloating; Non-intractable cyclical vomiting with nausea 04/11/2018 Orders Only General Surgery Blair Junior MD Bloating (Primary Dx); Nausea and vomiting, intractability of vomiting not specified, unspecified vomiting type; Pain of upper abdomen 11/22/2017 Office Visit General Surgery Darinel Nieto MD S/P laparoscopic cholecystectomy (Primary Dx) 11/15/2017 Office Visit General Surgery Darinel Nieto MD Epigastric pain (Primary Dx); S/P laparoscopic cholecystectomy 11/08/2017 [facility] Orthopedic Surgery Darinel Nieto MD Asymptomatic - [...] unspecified type; Non-rheumatic tricuspid valve insufficiency 06/01/2017 [facility] Cardiology Kaycee Brar MD Deep vein thrombosis - Encounter (DVT) of other vein of 06/02/2017 lower extremity, unspecified chronicity, unspecified laterality 06/01/2017 Procedure Pass Procedural Cardiology 06/01/2017 Surgery Procedural Cardiology Kaycee Brar MD Cv inferior vena cava filter removal [29666 (CPT)] 05/16/2017 Orders Only Cardiology Monisha Majano MA Deep vein thrombosis (DVT) of other vein of lower extremity, unspecified chronicity, unspecified laterality (Primary Dx) 05/14/2017 Office Visit Cardiology Kaycee Brar MD Deep vein thrombosis (DVT) of other vein of lower extremity, unspecified chronicity, unspecified laterality (Primary Dx) after 05/09/2017 Family History Medical History Relation Name Comments Alcohol abuse Brother No Known Problems Brother No Known Problems Brother Hypertension Father No Known Problems Maternal Grandfather Diabetes Maternal Grandmother Stroke Maternal Grandmother Diabetes Mother Diabetes Paternal Grandfather Prostate cancer Paternal Grandfather Other Paternal heart problems, during surgery Grandmother Other Sister thyroid problem No Known Problems Son Relation Name Status Comments Brother Alive Brother Alive Brother Alive Father Alive Maternal Grandfather Maternal Grandmother Mother Alive Paternal Grandfather Paternal Grandmother Sister Alive Son Alive Social History Tobacco Use Types Packs/Day Years Used Date Never Smoker Smokeless Tobacco: Never Used Alcohol Use Drinks/Week oz/Week Comments Yes rarely Sex Assigned at Date Recorded Not on file Last Filed Vital Signs Vital Sign Reading Time Taken Blood Pressure 126/66 04/11/2018 3:42 PM CDT Pulse 92 04/11/2018 3:42 PM CDT Temperature 37.2 C (99 F) 04/11/2018 3:42 PM CDT Respiratory Rate 16 04/11/2018 3:42 PM CDT Oxygen Saturation 100% 11/09/2017 7:43 AM CDT Inhaled Oxygen - - Concentration Weight 104 kg (229 lb 3.2 oz) 04/11/2018 3:42 PM CDT Height 179.1 cm (5' 10.5") 04/11/2018 3:42 PM CDT Body Mass Index 32.42 04/11/2018 3:42 PM CDT Plan of Treatment Date Type Specialty Care Team Description 05/13/2018 Office Visit Cardiology Kaycee Brar MD [address] [facility] [address] [place] [id number] Health Maintenance Due Date Last Done Comments CERVICAL CANCER SCREENING 2002 INFLUENZA VACCINE 01/30/2018 Implants Implanted Type Area Glass Vial Bending Conveyor Feeder Device Expiration Model / Identifier Date Serial / Lot Catheter Cardiac 8f Mach 1 Fr4 - Cardiovasc N/A: N/A [facility] [id number] ular INTERVENTIONAL 20 / Implanted: 06/01/2017 (Quantity not Implants CARDIOLOGY / on file) Catheter Cardiac 8f Mach 1 Fr4 - Cardiovasc N/A: N/A [facility] [id number] ular INTERVENTIONAL 20 / Implanted: 06/01/2017 (Quantity not Implants CARDIOLOGY / on file) Procedures Procedure Name Priority Date/Time Associated Diagnosis Comments FL UGI W AIR HD BA AND Routine 05/10/2018 Bloating Results for this SMALL BOWEL 12:34 PM CREPING MACHINE OPERATOR HELPER Nausea and vomiting, procedure are in the intractability of results section. vomiting not specified, unspecified vomiting type Pain of upper abdomen NM GASTRIC EMPTYING Routine 05/06/2018 Bloating Results for this 11:41 AM CREPING MACHINE OPERATOR HELPER Nausea and vomiting, procedure are in the intractability of results section. vomiting not specified, unspecified vomiting type Pain of upper abdomen SURGICAL PATHOLOGY Routine 11/08/2017 Results for this REQUEST 3:37 PM CDT procedure are in the results section. OR AN ELECTIVE Routine 11/08/2017 ENDOTRACHEAL AIRWAY 1:34 [...] of breath) Results for this 3:51 PM CREPING MACHINE OPERATOR HELPER Chest pain, unspecified procedure are in the type results section. ECHOCARDIOGRAM 2D Routine 06/05/2017 SOB (shortness of breath) Results for this COMPLETE W MMODE SPECTRAL 3:48 PM CREPING MACHINE OPERATOR HELPER Chest pain, unspecified procedure are in the COLOR DOPPLER (02406) type results section. ZZESTIMATED GFR Routine 06/02/2017 Results for this 5:34 AM CREPING MACHINE OPERATOR HELPER procedure are in the results section. LIPID PANEL Routine 06/02/2017 Results for this 5:34 AM CREPING MACHINE OPERATOR HELPER procedure are in the results section. HC COMPLETE BLD COUNT Routine 06/02/2017 Results for this W/AUTO DIFF 5:34 AM CREPING MACHINE OPERATOR HELPER procedure are in the results section. BASIC METABOLIC PANEL Routine 06/02/2017 Results for this 5:34 AM CREPING MACHINE OPERATOR HELPER procedure are in the results section. SURGICAL PATHOLOGY Routine 06/01/2017 Results for this REQUEST 5:52 PM CREPING MACHINE OPERATOR HELPER procedure are in the results section. SURGICAL PATHOLOGY Routine 06/01/2017 Results for this REQUEST 5:52 PM CREPING MACHINE OPERATOR HELPER procedure are in the results section. CV ECHO 2D FOLLOW UP OR STAT 06/01/2017 Results for this LIMITED STUDY 4:43 PM CREPING MACHINE OPERATOR HELPER procedure are in the results section. CV INFERIOR VENA CAVA Routine 06/01/2017 Deep vein thrombosis FILTER REMOVAL 4:30 PM CREPING MACHINE OPERATOR HELPER (DVT) of other vein of lower extremity, unspecified chronicity, unspecified laterality POC ACT Routine 06/01/2017 Results for this 4:20 PM CREPING MACHINE OPERATOR HELPER procedure are in the results section. POC ACT Routine 06/01/2017 Results for this 3:50 PM CREPING MACHINE OPERATOR HELPER procedure are in the results section. HC COMPLETE BLD COUNT STAT 06/01/2017 Results for this W/AUTO DIFF 10:16 AM CREPING MACHINE OPERATOR HELPER procedure are in the results section. ECG 12-LEAD STAT 06/01/2017 Results for this 10:05 AM CREPING MACHINE OPERATOR HELPER procedure are in the results section. ZZESTIMATED GFR STAT 06/01/2017 Results for this 9:42 AM CREPING MACHINE OPERATOR HELPER procedure are in the results section. BASIC METABOLIC PANEL STAT 06/01/2017 Results for this 9:42 AM CREPING MACHINE OPERATOR HELPER procedure are in the results section. after 05/09/2017 Results * FL UGI w Air HD BA and Small Bowel (05/10/2018 12:34 PM) Narrative Performed At EXAMINATION:FL UGI W AIR HD BA AND SMALL BOWEL HM RADIANT CLINICAL HISTORY:R14.0 Abdominal distension (gaseous), R11.2 Nausea with vomitingunspecified, abdominal painN V COMPARISON:None. TECHNIQUE:UPPER GI SERIES AND SMALL BOWEL FOLLOW-THROUGH was performed with effervescent granules and barium. RADIATION DOSE:229.68 mGy. IMPRESSION: 1.Esophagus:Esophagus was distensible. The mucosa and motility were within normal limits. There is no evidence of stricture. 2.Gastroesophageal junction:No evidence of hiatal hernia. No reflux. 3.Stomach:Normally distensible and demonstrates normal contours and mucosal pattern. 4.Duodenum:Bulb and sweep are normal. The duodenal-jejunal junction is in the normal expected position. 5.Small bowel follow-through:Small bowel loops are normal in caliber and distribution. Spot compression views of the terminal ileum are normal. Transit time was normal. [facility]-[id number] Procedure Note Interface, Radiology Results Incoming - 05/10/2018 3:37 PM CREPING MACHINE OPERATOR HELPER EXAMINATION: FL UGI W AIR HD BA AND SMALL BOWEL CLINICAL HISTORY: R14.0 Abdominal distension (gaseous), R11.2 Nausea with vomiting unspecified, abdominal pain N V COMPARISON: None. TECHNIQUE: UPPER GI SERIES AND SMALL BOWEL FOLLOW-THROUGH was performed with effervescent granules and barium. RADIATION DOSE: 229.68 mGy. IMPRESSION: 1. Esophagus: Esophagus was distensible. The mucosa and motility were within normal limits. There is no evidence of stricture. 2. Gastroesophageal junction: No evidence of hiatal hernia. No reflux. 3. Stomach: Normally distensible and demonstrates normal contours and mucosal pattern. 4. Duodenum: Bulb and sweep are normal. The duodenal-jejunal junction is in the normal expected position. 5. Small bowel follow-through: Small bowel loops are normal in caliber and distribution. Spot compression views of the terminal ileum are normal. Transit time was normal. [facility]-[id number] Performing Organization Address [facility] Vegas[facility]ar Phone Number [facility] [address] [place] [address] * GA Gastric Emptying (05/06/2018 11:41 AM) Narrative Performed At Procedure:[facility] Clinical History:R14.0 Abdominal distension (gaseous), R11.2 Nausea with vomitingunspecified, pain after eatingbloating Technique: 0.8 millicuries of [id number] colloid were mixed with an egg and cooked. The egg was fed to the patient and dynamic imaging of the abdomen in the anterior and posterior projections was performed for 90 minutes. Quantification of gastric emptying was performed using the geometric mean of the anterior and posterior projections. Delayed imaging at 4 hours was also performed. Findings: 1st 90 minutes (supine position):Gastric emptying half time=57 minutes (normal is <100 minutes). 4 hour delayed imaging:Gastric retention=2% (normal is <10%) Impression: Normal gastric emptying. [facility]-[id number] Procedure Note Interface, Radiology Results Incoming - 05/06/2018 11:49 AM CREPING MACHINE OPERATOR HELPER Procedure: NM GASTRIC EMPTYING Clinical History: R14.0 Abdominal distension (gaseous), R11.2 Nausea with vomiting unspecified, pain after eating bloating Technique: 0.8 millicuries of [id number] colloid were mixed with an egg and cooked. The egg was fed to the patient and dynamic imaging of the abdomen in the anterior and posterior projections was performed for 90 minutes. Quantification of gastric emptying was performed using the geometric mean of the anterior and posterior projections. Delayed imaging at 4 hours was also performed. Findings: 1st 90 minutes (supine position): Gastric emptying half time=57 minutes (normal is <100 minutes). 4 hour delayed imaging: Gastric retention=2% (normal is <10%) Impression: Normal gastric emptying. [id number] Performing Organization Address [facility]/Zipcode Phone Number [address] [address] * Surgical pathology request (11/08/2017 3:37 PM) Only the most recent of 4 results within the time period is included. [facility] DEPARTMENT OF PATHOLOGY AND GENOMIC MEDICINE Surgical pathology report See link below for PDF Lab [facility] DEPARTMENT OF Report PATHOLOGY AND GENOMIC MEDICINE Result status This is Final Report to [facility] DEPARTMENT OF [id number] PATHOLOGY AND GENOMIC MEDICINE Performing Organization Address City/[facility] Vegascode Phone Number [address] [address] PATHOLOGY AND GENOMIC MEDICINE * Estimated GFR (10/18/2017 2:03 PM) Only the most recent of 3 results within the time period is included. GFR Non Af Amer 71 mL/min/1.73 m2 [facility] DEPARTMENT OF PATHOLOGY AND GENOMIC MEDICINE GFR Af Amer 86 mL/min/1.73 m2 [facility] DEPARTMENT OF Comment: PATHOLOGY AND Chronic kidney [...] Americans. Specimen Plasma specimen Performing Organization Address City/[facility] Vegascode Phone Number [address] [address] PATHOLOGY AND GENOMIC MEDICINE * CBC with platelet and differential (10/18/2017 2:03 PM) Only the most recent of 3 results within the time period is included. WBC 7.69 4.50 - 11.00 k/uL [facility] DEPARTMENT OF PATHOLOGY AND GENOMIC MEDICINE RBC 4.24 4.20 - 5.50 m/uL [facility] DEPARTMENT OF PATHOLOGY AND GENOMIC MEDICINE HGB 13.1 12.0 - 16.0 g/dL [facility] DEPARTMENT OF PATHOLOGY AND GENOMIC MEDICINE HCT 39.4 37.0 - 47.0 % [facility] DEPARTMENT OF PATHOLOGY AND GENOMIC MEDICINE MCV 92.9 82.0 - 100.0 fL [facility] DEPARTMENT OF PATHOLOGY AND GENOMIC MEDICINE MCH 30.9 27.0 - 34.0 pg [facility] DEPARTMENT OF PATHOLOGY AND GENOMIC MEDICINE MCHC 33.2 31.0 - 37.0 g/dL [facility] DEPARTMENT OF PATHOLOGY AND GENOMIC MEDICINE RDW - SD 48.3 37.0 - 55.0 fL [facility] DEPARTMENT OF PATHOLOGY AND GENOMIC MEDICINE MPV 10.0 8.8 - 13.2 fL [facility] DEPARTMENT OF PATHOLOGY AND GENOMIC MEDICINE Platelet count 344 150 - 400 k/uL [facility] DEPARTMENT OF PATHOLOGY AND GENOMIC MEDICINE Nucleated RBC 0.00 /100 WBC [facility] DEPARTMENT OF PATHOLOGY AND GENOMIC MEDICINE Neutrophils 63.5 39.0 - 69.0 % [facility] DEPARTMENT OF PATHOLOGY AND GENOMIC MEDICINE Lymphocytes 26.7 25.0 - 45.0 % [facility] DEPARTMENT OF PATHOLOGY AND GENOMIC MEDICINE Monocytes 5.2 0.0 - 10.0 % [facility] DEPARTMENT OF PATHOLOGY AND GENOMIC MEDICINE Eosinophils 3.4 0.0 - 5.0 % [facility] DEPARTMENT OF PATHOLOGY AND GENOMIC MEDICINE Basophils 0.9 0.0 - 1.0 % [facility] DEPARTMENT OF PATHOLOGY AND GENOMIC MEDICINE Immature granulocytes 0.3Comment: "Immature 0.0 - 1.0 % [facility] DEPARTMENT OF granulocytes" (promyelocytes, PATHOLOGY AND myelocytes, metamyelocytes) [facility] MEDICINE Specimen Blood Performing Organization Address City/State/Zipcode Phone Number [facility] DEPARTMENT OF [address] [place] [address] PATHOLOGY AND GENOMIC MEDICINE * Comprehensive metabolic panel (10/18/2017 2:03 PM) Sodium 141 135 - 148 mEq/L [facility] DEPARTMENT OF PATHOLOGY AND GENOMIC MEDICINE Potassium 3.4 (L) 3.5 - 5.0 mEq/L [facility] DEPARTMENT OF PATHOLOGY AND GENOMIC MEDICINE Chloride 104 98 - 112 mEq/L [facility] DEPARTMENT OF PATHOLOGY AND GENOMIC MEDICINE CO2 24 24 - 31 mEq/L [facility] DEPARTMENT OF PATHOLOGY AND GENOMIC MEDICINE Anion gap 13 7 - 15 mEq/L [facility] DEPARTMENT OF Comment: PATHOLOGY AND Starting from September GENOMIC MEDICINE , anion gap calculation no longer incorporates potassium. Please note the change. BUN 11 6 - 20 mg/dL [facility] DEPARTMENT OF PATHOLOGY AND GENOMIC MEDICINE Creatinine 0.9 0.5 - 0.9 mg/dL [facility] DEPARTMENT OF PATHOLOGY AND GENOMIC MEDICINE Glucose 87 65 - 99 mg/dL [facility] DEPARTMENT OF PATHOLOGY AND GENOMIC MEDICINE Calcium 9.3 8.3 - 10.2 mg/dL [facility] DEPARTMENT OF PATHOLOGY AND GENOMIC MEDICINE Protein 7.7 6.3 - 8.3 g/dL [facility] DEPARTMENT OF Comment: PATHOLOGY AND GENOMIC MEDICINE 4.6-7.0 g/dL 1 week 4.4-7.6 g/dL 7 months-1year 5.1-7.3 g/dL 1-2 years5.6-7 .5 g/dL >3 years6.0-8 .0 g/dL 18-150 6.3-8.3 g/dL Albumin 3.8 3.5 - 5.0 g/dL [facility] DEPARTMENT OF PATHOLOGY AND GENOMIC MEDICINE A/G ratio 1.0 0.7 - 3.8 [facility] DEPARTMENT OF PATHOLOGY AND GENOMIC MEDICINE Alkaline phosphatase 61 35 - 104 U/L [facility] DEPARTMENT OF PATHOLOGY AND GENOMIC MEDICINE AST 26 10 - 35 U/L [facility] DEPARTMENT OF PATHOLOGY AND GENOMIC MEDICINE ALT 17 5 - 50 U/L [facility] DEPARTMENT OF PATHOLOGY AND GENOMIC MEDICINE Total bilirubin 0.4 0.0 - 1.2 mg/dL [facility] DEPARTMENT OF PATHOLOGY AND GENOMIC MEDICINE Specimen Plasma specimen Performing Organization Address City/[facility] Vegas[facility] Phone Number [facility] DEPARTMENT OF [address] [place] [address] PATHOLOGY AND GENOMIC MEDICINE * ECG 12 lead (06/05/2017 3:51 PM) Only the most recent of 2 results within the time period is included. Ventricular rate 90 [facility] MUSE Atrial rate 90 [facility] OR interval 142 [facility] QRSD interval 68 [facility] QT interval 354 [facility] QTC interval 433 [facility] P axis 1 72 [facility] QRS axis 1 62 [facility] T wave axis 59 [facility] EKG impression Normal sinus rhythm-Normal [facility] ECG-In automated comparison with ECG of 01-JUN-2017 10:05,-No significant change was found- Performing Organization Address City/[facility] Vegas[facility] Phone Number [facility] [address] [place] [address] * Echocardiogram complete w contrast and 3D if needed (06/05/2017 3:48 PM) Narrative Performed At [facility] Echocardiography Report Pat.Name:ELVIS LAWS Pat.ID:[id number] St.Date: 06/05/2017 Refer.MD:KAYCEE BRAR MD Exam Time: 5:24:00 PMStudy Type:Routine Echo Height:71inWeight:236lb BSA: 2.26 m2 DOBAge:1980,36Y Sex: FEMALEBP:144/85 HR:80 bpmSonogrphr: Shagufta [place] RDCS, RVT Pat. Stat.:OutpatientRoom:[place] Study Status:Final Echo Event ID:[id number] Order ID:[id number] Reason for Study:Chest pain, suspected cardiac etiology, [...] of 5 mmHg. MEASUREMENTS: 2D Parasternal [place] LVOT 1.9 cmLA Ds3.1 cm LVIDd5.2 cmIndex2.3 cm/m Ao An1.9 cm LVIDs3.3 cmAo Rtd 2.8 cm Index1.3 cm/m LV%fs 35.3 % LV Kmhm580.7 g(87-129) IVSd 0.6 cmRWT0.3 LVPWd0.7 cm WALL MOTION: RESTING WALL MOTION: Basal Inferior, Mid Inferior freeman are mildly hypokinetic. Normal in all other freeman. Wall Index=1.1 Signed 06/06/2017 08:55 AM Li Doran M.D. Procedure Note Interface, Radiology Results In - 06/06/2017 8:55 AM CREPING MACHINE OPERATOR HELPER [facility] Echocardiography Report Pat.Name: ELVIS LAWS Pat.ID: [id number] St.Date: 06/05/2017 Refer.MD: KAYCEE BRAR MD Exam Time: 5:24:00 PM Study Type:Routine Echo Height: 71in Weight: 236lb BSA: 2.26 m2 Age: 1 1980,36Y Sex: FEMALE BP: 144/85 HR: 80 bpm Sonogrphr: [place]agu[place]a [place] RDCS, RVT Pat. Stat.:Outpatient Room: [place] Study Status:Final Echo Event ID:[id number] Order ID: [id number] Reason for Study:Chest pain, suspected cardiac etiology, [...] of 5 mmHg. MEASUREMENTS: 2D Parasternal [place] LVOT 1.9 cm LA Ds 3.1 cm [...] AM Li Doran M.D. Performing Organization Address City/State/[facility] Vegascode Phone Number [facility] [address] [place] [address] * Lipid panel (06/02/2017 5:34 AM) Cholesterol 136 <200 mg/dL [facility] DEPARTMENT OF PATHOLOGY AND GENOMIC MEDICINE Triglycerides 73 <150 mg/dL [facility] DEPARTMENT OF PATHOLOGY AND GENOMIC MEDICINE HDL cholesterol 40 >40 mg/dL [facility] DEPARTMENT OF PATHOLOGY AND GENOMIC MEDICINE LDL cholesterol 87Comment: Result obtained by <100 mg/dL [facility] DEPARTMENT OF direct LDL measurement PATHOLOGY AND GENOMIC MEDICINE Lipid panel SeeBelow [facility] DEPARTMENT OF interpretation Comment: PATHOLOGY AND Total [...] mg/dL) Specimen Plasma specimen Performing Organization Address [facility] [place] [address] PATHOLOGY AND [facility] * Basic metabolic panel (06/02/2017 5:34 AM) Only the most recent of 2 results within the time period is included. Sodium 141 135 - 148 mEq/L [facility] DEPARTMENT OF PATHOLOGY AND GENOMIC MEDICINE Potassium 4.1 3.5 - 5.0 mEq/L [facility] DEPARTMENT OF PATHOLOGY AND GENOMIC MEDICINE Chloride 107 98 - 112 mEq/L [facility] DEPARTMENT OF PATHOLOGY AND GENOMIC MEDICINE CO2 21 (L) 24 - 31 mEq/L [facility] DEPARTMENT OF PATHOLOGY AND GENOMIC MEDICINE Anion gap 13 7 - 15 mEq/L [facility] DEPARTMENT OF Comment: PATHOLOGY AND Starting from September [facility] , anion gap calculation no longer incorporates potassium. Please note the change. BUN 15 6 - 20 mg/dL [facility] DEPARTMENT OF PATHOLOGY AND GENOMIC MEDICINE Creatinine 0.8 0.5 - 0.9 mg/dL [facility] DEPARTMENT OF PATHOLOGY AND GENOMIC MEDICINE Glucose 92 65 - 99 mg/dL [facility] DEPARTMENT OF PATHOLOGY AND GENOMIC MEDICINE Calcium 8.2 (L) 8.3 - 10.2 mg/dL [facility] DEPARTMENT OF PATHOLOGY AND GENOMIC MEDICINE Specimen Plasma specimen Performing Organization Address [facility] Phone Number [address] [address] PATHOLOGY AND GENOMIC MEDICINE * Echocardiogram 2d limited (06/01/2017 4:43 PM) Narrative Performed At [facility] Echocardiography Report [address] [facility] [address], [place] [address] Pat.Name:ELVIS LAWS Pat.ID:[id number] .Date: 06/01/2017 Refer.MD:KAYCEE BRAR MD Exam Time: 4:13:00 PMStudy Type:Routine Echo Height:71inWeight:236lb BSA: 2.26 m2 DOBAge:1980,36Y Sex: FEMALEBP:116/81 HR:94 bpmSonogrphr: INEZ Claudio Pat. Stat.:Inpatient Room:Setter Out Study Status:Final Echo Event ID:[id number] Order ID:[id number] Reason for Study:Pericardial effusion;re-eval therapy guide Procedures:Portable, [...] at least moderate. MEASUREMENTS: 2D Parasternal [place] LVOT 2.2 cmAo An2 cm LVIDd4.3 cmIndex1.9 cm/m Ao Rtd 3 cm Index1.3 cm/m IVSd 1.1 cmLV Edjk111.6 g(87-129) LVPWd1 cmLVM Index 67.5 g/m2 LA Ds2.2 cmRWT0.5 Signed 06/01/2017 07:34 PM Joel Pham M.D. Procedure Note Interface, Radiology Results In - 06/01/2017 7:[address] [facility] Echocardiography Report [address] [place] [address] Pat.Name: ELVIS LAWS Pat.ID: [id number] .Date: 06/01/2017 Refer.MD: KAYCEE BRAR MD Exam Time: 4:13:00 PM Study Type:Routine Echo Height: 71in Weight: 236lb BSA: 2.26 m2 Age: 1 1980,36Y Sex: FEMALE BP: 116/81 HR: 94 bpm Sonogrphr: INEZ Claudio Pat. Stat.:Inpatient Room: Setter Out 05 Study Status:Final Echo Event ID:[id number] Order ID: [id number] Reason for Study:Pericardial effusion;re-eval therapy guide Procedures:Portable, [...] at least moderate. MEASUREMENTS: 2D Parasternal [place] LVOT 2.2 cm Ao An 2 cm LVIDd 4.3 cm Index 1.9 cm/m Ao Rtd 3 cm Index 1.3 cm/m IVSd 1.1 cm LV Mass 152.6 g (87-129) LVPWd 1 cm LVM Index 67.5 g/m2 LA Ds 2.2 cm RWT 0.5 Signed 06/01/2017 07:34 PM Joel Pham M.D. Performing Organization Address [facility]co[facility] Phone Number [facility] [address] [place] [address] * Cv labor training manager procedure (06/01/2017 4:30 PM) Narrative Performed At Performing Organization Address [facility] Phone Number [facility] [address] [place] [address] * POC ACT (06/01/2017 4:20 PM) Only the most recent of 2 results within the time period is included. Activated clotting time, 170 seconds POC Specimen Blood after 05/09/2017 Insurance Payer Benefit Subscriber ID Type Phone Address Plan / Group CIGNA CIGNA OPEN xxxxxxxxxxx HMO ACCESS/NET WORK Work: [id number] [place] [phone] Home:
--- OUTSIDE RECORDS SUMMARY | 2018-05-10 19:46 | XMS REPORT | Clinical Summary ---
Author Author PREMA [facility] Address Unknown Phone Unavailable Care Team Providers Care Auto Cleaner Name Role Phone Bi Gomes MD PCP Allergies Comments Active Allergy Reactions Severity Noted Date Sulfamethoxazole-Trimetho Hives 05/11/2015 prim chlorahexadine and pineapple Other 05/11/2015 Shellfish Containing 05/11/2015 Products Sulfa (Sulfonamide Hives 05/11/2015 Antibiotics) Medications End Date Status Medication Sig Dispensed Refills Start Date Active topiramate (TOPAMAX) 50 Take 50 mg by 0 MG tablet mouth 2 (two) times daily. Active WARFARIN SODIUM by 0 (WARFARIN, BULK, MISC) Miscellaneous route 3 mg Tues, Thurs, Sat, Sun 5 mg Mon, Wed, Frid . 06/14/2017 acetaminophen-codeine Take 1 tablet 20 tablet 0 (TYLENOL #3) 300-30 mg by mouth 7 per tablet every 4 (four) hours as needed for up to 10 days. Max Daily Amount: 6 tablets Active Problems Not on file Encounters Care Team Description Date Type Specialty Jose Carlos Victor MD Chest pain, unspecified type (Primary Dx); Generalized abdominal pain; Shortness of breath 06/04/2017 Emergency Emergency Medicine 06/04/2017 Orders Only General Internal Medicine after 05/09/2017 Social History Date Tobacco Use Types Packs/Day Years Used Never Smoker Alcohol Use Drinks/Week oz/Week Comments No Sex Assigned at Date Recorded Not on file Industry Job Start Date Occupation Not on file Not on file Not on file Travel End Travel History Travel Start No recent travel history available. Last Filed Vital Signs Time Taken Vital Sign Reading 06/04/2017 1:10 PM MULTIGRAPHER Blood Pressure 106/70 06/04/2017 1:10 PM MULTIGRAPHER Pulse 96 06/04/2017 1:10 PM MULTIGRAPHER Temperature 37 C (98.6 F) 06/04/2017 1:10 PM MULTIGRAPHER Respiratory Rate 16 06/04/2017 1:10 PM MULTIGRAPHER Oxygen Saturation 100% - Inhaled Oxygen - Concentration 06/04/2017 9:09 AM MULTIGRAPHER Weight 107.5 kg (237 lb) 06/04/2017 9:09 AM MULTIGRAPHER Height 180.3 cm (5' 11") 06/04/2017 9:09 AM MULTIGRAPHER Body Mass Index 33.05 Plan of Treatment Not on file Procedures Comments Procedure Name Priority Date/Time Associated Diagnosis REPORT OF PROCEDURE - 06/05/2017 ENDOSCOPY SCAN 10:[address] CHEST PE TEST DESIGN STAT 06/04/2017 11:[address] ABDOMEN/PELVIS WITH IV STAT 06/04/2017 CONTRAST 11:51 AM MULTIGRAPHER ECG 12-LEAD STAT 06/04/2017 9:36 AM MULTIGRAPHER SCREEN, URINE STAT 06/04/2017 9:28 AM MULTIGRAPHER CBC W/PLT COUNT & AUTO STAT 06/04/2017 DIFFERENTIAL 9:27 AM MULTIGRAPHER PT/APTT STAT 06/04/2017 9:27 AM MULTIGRAPHER COMPREHENSIVE METABOLIC STAT 06/04/2017 PANEL 9:27 AM MULTIGRAPHER CBC W/PLT COUNT & AUTO STAT 06/04/2017 DIFFERENTIAL 9:27 AM MULTIGRAPHER POCT-LACTIC ACID, VENOUS Routine 06/04/2017 9:23 AM MULTIGRAPHER POCT-GLUCOSE METER Routine 06/04/2017 9:22 AM MULTIGRAPHER after 05/09/2017 Results * EKG-SCANNED (06/05/2017 10:30 AM MULTIGRAPHER) Narrative Performed At * CT chest for pulmonary embolus (06/04/2017 11:51 AM MULTIGRAPHER) Narrative Performed At FINAL REPORT [facility] Chest CT with contrast, PE protocol. Abdomen [...] MD Report Verified Date/Time:06/04/2017 12:17:40 Reading Location: [facility] C013X Ortho Consult Reading Room Procedure Note Interface, External Ris In - 06/04/2017 12:19 PM MULTIGRAPHER FINAL REPORT Chest CT with contrast, PE [...] Report Verified Date/Time: 06/04/2017 12:17:40 Reading Location: [facility] B1 C013X Ortho Consult Reading Room Performing Organization Address City/State/Zipcode Phone Number [place] * CT abdomen/pelvis with IV contrast (06/04/2017 11:51 AM MULTIGRAPHER) Narrative Performed At FINAL REPORT [facility] Chest CT with contrast, PE protocol. Abdomen [...] MD Report Verified Date/Time:06/04/2017 12:17:40 Reading Location: [facility] C013X Ortho Consult Reading Room Procedure Note Interface, External Ris In - 06/04/2017 12:19 PM MULTIGRAPHER FINAL REPORT Chest CT with contrast, PE [...] Report Verified Date/Time: 06/04/2017 12:17:40 Reading Location: [address] Ortho Consult Reading Room Performing Organization Address City/State/Zipcode Phone Number GE RIS * ECG 12 lead (06/04/2017 9:36 AM MULTIGRAPHER) Narrative Performed At Ventricular Rate 112 BPM GE M[facility] Atrial Rate 112 BPM P-R Interval 142 ms QRS Duration 76 ms Q-T Interval 314 ms QTC Calculation(Bazett) 428 ms P [place] 56 degrees R [place] 33 degrees T [place] 37 degrees Sinus tachycardia Otherwise normal ECG When compared with ECG of 11-MAY-2015 12:04, No significant change was found Confirmed by MD [facility], [id number] on 06/05/2017 7:12:12 AM Procedure Note Interface, External Ris In - 06/05/2017 7:12 AM MULTIGRAPHER Ventricular Rate 112 BPM Atrial Rate 112 BPM P-R Interval 142 ms QRS Duration 76 ms Q-T Interval 314 ms QTC Calculation(Bazett) 428 ms P [place] 56 degrees R [place] 33 degrees T [place] 37 degrees Sinus tachycardia Otherwise normal ECG When compared with ECG of 11-MAY-2015 12:04, No significant change was found Confirmed by MD NATA, LINDSEY ([id number]) on 06/05/2017 7:12:12 AM Performing Organization Address City/[facility] Phone Number [facility] * Screen, urine (06/04/2017 9:28 AM MULTIGRAPHER) Preg Test, Ur Negative [facility] Specimen Urine - Urine, Voided Performing Organization Address [facility] Phone Number [facility] [address] [place] [address] [facility] * PT/aPTT (06/04/2017 9:27 AM MULTIGRAPHER) Protime 20.1 (H) 11.7 - 14.7 seconds [facility] INR 1.7 <=5.9 [facility] PTT 39.4 (H) 22.5 - 36.0 seconds [facility] Specimen Blood - Line, Venous Narrative Performed At RECOMMENDED COUMADIN/WARFARIN INR THERAPY RANGES [facility] STANDARD DOSE: 2.0 - 3.0 Includes: PROPHYLAXIS for venous thrombosis, [facility] systemic embolization; TREATMENT for venous thrombosis and/or pulmonary embolus. HIGH RISK: Target INR is 2.5-3.5 for patients with mechanical heart valves. Performing Organization Address [facility] Hospital[facility]na[facility] Phone Number [facility] [address] [place] [address] [facility] * CBC with platelet count + automated diff (06/04/2017 9:27 AM MULTIGRAPHER) WBC 10.6 (H) 3.5 - 10.5 K/L [facility] RBC 4.33 3.93 - 5.22 M/L [facility] Hemoglobin 13.0 11.2 - 15.7 GM/DL [facility] Hematocrit 40.4 34.1 - 44.9 % [facility] MCV 93.3 79.4 - 94.8 fL [facility] MCH 30.0 25.6 - 32.2 pg [facility] MCHC 32.2 32.2 - 35.5 GM/DL [facility] RDW 14.5 (H) 11.7 - 14.4 % [facility] Platelets 285 150 - 450 K/CU MM [facility] MPV 9.8 9.4 - 12.3 fL [facility] nRBC 0 0 - 0 /100 WBC [facility] % Neutros 66 % [facility] % Lymphs 23 % [facility] % Monos 7 % [facility] % Eos 3 % [facility] % Baso 1 % [facility] # Neutros 7.01 (H) 1.56 - 6.13 K/L [facility] # Lymphs 2.44 1.18 - 3.74 K/L [facility] # Monos 0.71 (H) 0.24 - 0.36 K/L [facility] # Eos 0.31 0.04 - 0.36 K/L [facility] # Baso 0.07 0.01 - 0.08 K/L [facility] Immature 0 0 - 1 % [facility] Granulocytes-[facility] Specimen Blood - Line, Venous Performing Organization Address City/State/Zipcode Phone Number [facility] [address] [place] [address] MEDICAL CENTER * Comprehensive metabolic panel (06/04/2017 9:27 AM MULTIGRAPHER) Protein, Total 8.1 6.0 - 8.3 gm/dL [facility] Albumin 4.2 3.5 - 5.0 g/dL [facility] Alkaline Phosphatase 85 40 - 150 U/L [facility] Total Bilirubin 0.4 0.2 - 1.2 mg/dL [facility] Sodium 138 136 - 145 meq/L [facility] Potassium 3.7 3.5 - 5.1 meq/L [facility] Chloride 109 (H) 98 - 107 meq/L [facility] CO2 19 (L) 22 - 29 meq/L [facility] BUN 9 7 - 21 mg/dL [facility] Creatinine 0.83 0.57 - 1.25 mg/dL [facility] Glucose 119 (H) 70 - 105 mg/dL [facility] Calcium 9.3 8.4 - 10.2 mg/dL [facility] AST 23 5 - 34 U/L [facility] ALT 16 6 - 55 U/L [facility] EGFR 78Comment: ESTIMATED GFR IS mL/min/1.73 sq m [facility] NOT ACCURATE CREATININE [facility] CLEARANCE IN PREDICTING GLOMERULAR FILTRATION RATE. ESTIMATED GFR IS NOT APPLICABLE FOR DIALYSIS PATIENTS. Specimen Blood - Line, Venous Performing Organization Address City/State/[place] [address] [facility] * POC-Lactic Acid, Venous (06/04/2017 9:23 AM MULTIGRAPHER) POC-Lactic Acid, Venous 1.7Comment: TESTED AT [facility] 0.9 - 1.7 mmol/L [address] Specimen Blood Performing Organization Address City/State/Zipcode Phone Number [facility] [address], [place] [address] [facility] * POC-Glucose meter (06/04/2017 9:22 AM MULTIGRAPHER) POC-Glucose Meter 131 (H)Comment: TESTED AT 70 - 110 mg/dL [address] [address] Specimen Blood Performing Organization Address City/[facility]/Zipcode Phone Number [facility] [address] [place] [address] [facility] after 05/09/2017 Insurance Payer Benefit Subscriber ID Type Phone Address Plan / Group BLUE CROSS/[employer] BCBS PPO xxxxxxxxxxxx PPO [phone] [address] [place] [address] CHOICE
--- NOTE | 2018-05-10 23:05 | Diagnostic Imaging Report ---
EXAMINATION: Head CT without contrast. HISTORY:Headache and right facial numbness. COMPARISON:None. TECHNIQUE: Multidetector axial images were obtained from the foramen magnum to the vertex without contrast. The images were reconstructed using brain and bone algorithms. Thin section brain images were reformatted into coronal and sagittal planes. Dose modulation, iterative reconstruction, and/or weight based adjustment of the mA/kV was utilized to reduce the radiation dose to as low as reasonably achievable. Intravenous contrast: None IMAGE QUALITY: Acceptable. FINDINGS: Skull/scalp: Incidental 4 mm subcutaneous soft tissue density lesion in left frontal scalp possibly represents an epidermal inclusion cyst. No lytic or blastic calvarial lesion. Parenchyma: No abnormal density. No acute hemorrhage, mass or acute major vascular territorial infarct. Arteries: No density suggestive of thrombosis. Dural sinuses: No abnormal density suggestive of thrombosis. Ventricles: No hydrocephalus or displacement. Extra-axial spaces: No abnormal density. Brain volume: Normal for age. Craniocervical junction: No mass, Chiari malformation, or basilar invagination. Sella: No mass. Paranasal/mastoid sinuses: Imaged portions unremarkable. IMPRESSION: No intracranial abnormality. Signed by: Dr. Camila Vyas M.D. on 05/10/2018 11:01 PM
== END 2018-05-11 00:21 | disposition home or self-care (01) ==
LOC: ER 19:42
DX: R20.2 Paresthesia of skin (principal); Z86.711 Personal history of pulmonary embolism
CPT/HCPCS: 70450; 99283

== ENCOUNTER 2019-02-21 07:19 | Emergency (ER) | payer OTHER ==
[~2019-02-21] VITALS: Ht 180.3 cm; Wt 103.4 kg
--- OUTSIDE RECORDS SUMMARY | 2019-02-21 07:22 | XMS REPORT ---
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 Medications Medication Code System Code Instructions Start Date End Date Status Dosage Zembrace SymTouch [facility] 82667273851 3 MG/0.5ML Subcutaneous Once a day Active 0.5 ml as needed one time Meloxicam [facility] 95916968646 15 MG Orally Once a day Jun 11, 2018 Inactive 1 tablet Topiramate [facility] 72782245893 100 MG Orally Twice a day Active 1 tablet Linzess [facility] 17207484320 145 MCG Orally Once a day Active 1 capsule Promethazine HCl [facility] 15032886295 25 MG Orally every 12 hrs Active 1 tablet as needed Hyoscyamine Sulfate [facility] 44016204448 0.125 MG Orally every 4 hrs Active 1 tablet as needed Naproxen ND 93716993103 500 MG Orally every 12 hrs Jul 10, 2018 October 08, 2018 Active 1 tablet with food or milk as needed Carafate [facility] 21908507805 1 GM Orally Twice a day Active 1 tablet on an empty stomach Vital Signs Date/Time: Jul 10, 2018 BMI 32.29 Index Weight 238.1 lbs Height 72 in Temperature 98.4 F Cardiac Monitoring Heart Rate 64 /min Blood Pressure Diastolic 64 mm Hg Blood Pressure Systolic 124 mm Hg Results No Known Results Summary Purpose eClinicalWorks Submission
--- OUTSIDE RECORDS SUMMARY | 2019-02-21 07:22 | XMS REPORT ---
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 Problem Joint pain M25.50 Active Medications Medication Code System Code Instructions Start Date End Date Status Dosage Promethazine HCl [facility] 74703152029 25 MG Orally every 12 hrs Active 1 tablet as needed Excedrin Tension Headache [facility] [address]-85 500-65 MG Orally once a day Active 2 tablets as needed Zembrace SymTouch [facility] 17276259694 3 MG/0.5ML Subcutaneous Once a day Active 0.5 ml as needed one time PredniSONE ND 47072001720 5 MG Orally Once a day September 25, 2018 Active 1 tablet Carafate [facility] 24976610856 1 GM Orally Twice a day Active 1 tablet on an empty stomach Linzess ND 36443416351 145 MCG Orally Once a day Active 1 capsule Methotrexate ND 55962498148 2.5mg Orally Once a week November 12, 2018 Mar 12, 2019 Active 4 tabx 1wk and then take 6 tabs every week Hyoscyamine Sulfate ND 11231355922 0.125 MG Orally every 4 hrs Active 1 tablet as needed Folic Acid ND 92135325968 1 MG Orally Once a day November 12, 2018 Mar 12, 2019 Active 1 tablet Topiramate ND 35098525731 100 MG Orally Twice a day Active 1 tablet Vital Signs Date/Time: November 12, 2018 BMI 33.45 Index Weight 246.7 lbs Height 72 in Temperature 98.3 F Cardiac Monitoring Heart Rate 68 /min Blood Pressure Diastolic 90 mm Hg Blood Pressure Systolic 124 mm Hg Results No Known Results Summary Purpose eClinicalWorks Submission
--- OUTSIDE RECORDS SUMMARY | 2019-02-21 07:22 | XMS REPORT ---
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
--- OUTSIDE RECORDS SUMMARY | 2019-02-21 07:22 | XMS REPORT ---
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 64147602972 5 MG Orally Once a day September 25, 2018 Active 1 tablet Results No Known Results Summary Purpose eClinicalWorks Submission
--- OUTSIDE RECORDS SUMMARY | 2019-02-21 07:22 | XMS REPORT ---
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
--- OUTSIDE RECORDS SUMMARY | 2019-02-21 07:22 | XMS REPORT | Continuity of Care Document ---
Author Author [employer] Address Unknown Phone Unavailable Care Team Providers Care Proposal Director Name Role Phone [employer] Unavailable Unavailable Problems Problem Status Onset Date Classification Date Reported Comments Source Joint pain Active Problem 02/18/2019 Gregg Joveler HLA B27 positive Active Problem 02/18/2019 Gregg Goodman Spondylarthritis Active Problem 02/01/2019 Gregg Goodman Rheumatoid factor positive Active Problem 02/18/2019 Gregg Maxine Rheumatoid arthritis involving multiple sites with positive rheumatoid factor Active Problem 02/18/2019 Gregg Goodman Medial meniscus tear Active Diagnosis 02/08/2019 Gregg Goodman Medications Medication Details Route Status Patient Instructions Ordering Provider Order Date Source Tramadol one tab orally Active 50 mg orally tid prn for pain Goodman 02/07/2019 Gregg Goodman Medrol Dose Jarvis as directed Orally Active 4mg Orally once a day Elena 01/28/2019 Gregg Goodman Methotrexate 8 tabs Orally Active 2.5mg Orally Once a week Elena 11/12/2018 Gregg Goodman Folic Acid 1 tablet Orally Active 1 MG Orally Once a day Elena 11/12/2018 Gregg Goodman PredniSONE 1 tablet Orally Active 5 MG Orally Once a day Elena 09/25/2018 Gregg Goodman Naproxen 1 tablet with food or milk as needed Orally Active 500 MG Orally every 12 hrs Elena 07/10/2018 Gregg Goodman Meloxicam 1 tablet Orally Active 15 MG Orally Once a day Elena 06/11/2018 Gregg Goodman Zembrace SymTouch 0.5 ml as needed one time Subcutaneous Active 3 MG/0.5ML Subcutaneous Once a day Elena Gregg Goodman Topiramate 1 tablet Orally Active 100 MG Orally Twice a day Elena Gregg Goodman Linzess 1 capsule Orally Active 145 MCG Orally Once a day Elena Gregg Goodman Promethazine HCl 1 tablet as needed Orally Active 25 MG Orally every 12 hrs Elena Gregg Goodman Hyoscyamine Sulfate 1 tablet as needed Orally Active 0.125 MG Orally every 4 hrs Elena Gregg Goodman Carafate 1 tablet on an empty stomach Orally Active 1 GM Orally Twice a day Elena Gregg Goodman Excedrin Tension Headache 2 tablets as needed Orally Active 500- 65 MG Orally once a day Elena Gregg Goodman Allergies, Adverse Reactions, Alerts Substance Category Reaction Severity Reaction type Status Date Reported Comments Source sulfa Adverse Reaction hives Adverse Reaction Active 01/13/2019 Gregg Goodman Immunizations No Data Provided for This Section Results No Data Provided for This Section Pathology Reports No Data Provided for This Section Diagnostic Reports No Data Provided for This Section Consultation Notes No Data Provided for This Section Discharge Summaries No Data Provided for This Section History and Physicals No Data Provided for This Section Vital Signs Vital Sign Value Date Comments Source Weight 247.8 01/13/2019 Gregg Joveler Height 71 01/13/2019 Gregg Goodman Temperature Oral (F) 98.6 F 01/13/2019 Gregg Goodman Heart Rate 74 01/13/2019 Gregg Goodman Diastolic (mm Hg) 80 01/13/2019 Gregg Goodman Systolic (mm Hg) 120 01/13/2019 Gregg Joveler Weight 246.7 11/12/2018 Gregg Goodman Height 72 11/12/2018 Gregg Goodman Temperature Oral (F) 98.3 F 11/12/2018 Gregg Goodman Heart Rate 68 11/12/2018 Gregg Goodman Diastolic (mm Hg) 90 11/12/2018 Gregg Goodman Systolic (mm Hg) 124 11/12/2018 Gregg Joveler Weight 238.1 07/10/2018 Gregg Goodman Height 72 07/10/2018 Gregg Goodman Temperature Oral (F) 98.4 F 07/10/2018 Gregg Goodman Heart Rate 64 07/10/2018 Gregg Goodman Diastolic (mm Hg) 64 07/10/2018 Gregg Goodman Systolic (mm Hg) 124 07/10/2018 Gregg Goodman Encounters No Data Provided for This Section Procedures No Data Provided for This Section Assessment and Plan No Data Provided for This Section Plan of Care No Data Provided for This Section Social History No Data Provided for This Section Family History No Data Provided for This Section Advance Directives No Data Provided for This Section Functional Status No Data Provided for This Section
--- OUTSIDE RECORDS SUMMARY | 2019-02-21 07:22 | XMS REPORT ---
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
--- OUTSIDE RECORDS SUMMARY | 2019-02-21 07:22 | XMS REPORT | Clinical Summary ---
Author Author [facility] Address Unknown Phone Unavailable Care Team Providers Care Anime Designer Name Role Phone Bi Gomes MD PCP [...] Sun 5 mg Mon, Wed, Frid . Active Problems Not on file Social History Date Tobacco Use Types Packs/Day Years Used Never Smoker Alcohol Use Drinks/Week oz/Week Comments No Sex Assigned at Date Recorded Not on file Industry Job Start Date Occupation Not on file Not on file Not on file Travel End Travel History Travel Start No recent travel history available. Last Filed Vital Signs Not on file Plan of Treatment Not on file Results Not on fileafter 02/20/2018 Insurance Payer Benefit Subscriber ID Type Phone Address Plan / Group BLUE CROSS[employer]BLUE [employer] BCBS PPO xxxxxxxxxxxx PPO [phone] [id number] [place] [address] CHOICE [id number] (Home) [place] [phone]
--- OUTSIDE RECORDS SUMMARY | 2019-02-21 07:22 | XMS REPORT ---
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 44993268828 3 MG/0.5ML Subcutaneous Once a day Active 0.5 ml as needed one time PredniSONE ND 99597811389 5 MG Orally Once a day September 25, 2018 Inactive 1 tablet F[address] Acid [facility] 79664125021 1 MG Orally Once a day November 12, 2018 Active [address] [facility] 48652264753 2.5mg Orally Once a week November 12, 2018 Active [address] [facility] 67292065949 100 MG Orally Twice a day Active 1 tablet Vital Signs Date/Time: January 13, 2019 BMI 34.56 Index Weight 247.8 lbs Height 71 in Temperature 98.6 F Cardiac Monitoring Heart Rate 74 /min Blood Pressure Diastolic 80 mm Hg Blood Pressure Systolic 120 mm Hg Results Name Result Date Reference Range Unit Abnormality Flag CBC W/AUTO DIFF ----MONOCYTES 7.1 20190113 4.0-13.0 % ----LYMPHOCYTES 17.5 20190113 19.0-48.0 % L ----HEMOGLOBIN 13.5 20190113 11.5-15.5 G/DL ----HEMATOCRIT 42.3 20190113 34.0-45.0 % ----MCV 95.5 20190113 80.0-100.0 fL ----MCH 30.5 [id number] 27.0-34.0 PG ----MCHC 31.9 [id number] 32.0-35.5 G/DL L ----PLATELET COUNT 365 20190113 130-400 K/UL ----RDW 14.3 [id number] 11.0-15.0 % ----BASOPHILS 0.8 69153282 0.0-2.0 % ----WBC 9.1 [id number] 4.0-11.0 K/UL ----NEUTROPHILS 72.3 [id number] 40.0-74.0 % ----RBC 4.43 [id number] 3.80-5.10 M/UL ----EOSINOPHILS 2.3 43317639 0.0-7.0 % C-REACTIVE PROTEIN ----C-REACTIVE PROTEIN 0.4 [id number] <0.5 MG/DL COMPREHENSIVE METABOLIC PANEL ----CALC A/G RATIO 1.5 [id number] 1.0-2.6 RATIO ----CALC GLOBULIN 3.1 [id number] 1.9-3.7 G/DL ----ALKALINE PHOSPHATASE 82 20190113 40-112 U/L ----BILIRUBIN, TOTAL 0.3 65432067 <=1.2 MG/DL ----CHLORIDE 103 13816091 95-107 MEQ/L ----ALT 24 97442954 5-40 U/L ----POTASSIUM 3.9 75836285 3.5-5.4 MEQ/L ----AST 26 20190113 9-40 U/L ----SODIUM 139 82578305 133-146 MEQ/L ----CALC BUN/CREAT 12 [id number] 6-28 RATIO ---- eGFR NON- AMER. 90 20190113 >60 ML/MIN/1.73 ----CALCIUM 9.4 58678918 8.5-10.5 MG/DL ----CARBON DIOXIDE 21 81231400 19-31 MEQ/L ----ALBUMIN 4.6 47132297 3.5-5.2 G/DL ----PROTEIN, TOTAL 7.7 74208234 6.1-8.3 G/DL ----GLUCOSE 90 75543927 70-99 MG/DL ----BUN 10 20190113 6-20 MG/DL ----CREATININE 0.83 20190113 0.60-1.30 MG/DL ---- eGFR AMER. 104 20190113 >60 ML/MIN/1.73 SEDIMENTATION RATE ----SEDIMENTATION RATE 16 20190113 0-20 MM/HOUR Summary Purpose [employer] Submission
[2019-02-21] MEDS ORDERED: ONDANSETRON HCL INJ 2MG/ML 2ML 2 MG/ML VIAL IV STA (07:28)
[2019-02-21] MEDS ORDERED: SODIUM CHLORIDE 0.9% 1000ML 1,000 ML IV SCH (07:30)
[2019-02-21] MEDS ORDERED: KETOROLAC TROMETHAMINE 30 MG/ML VIAL IV STA (07:34)
[2019-02-21] MEDS ORDERED: PANTOPRAZOLE 40 MG 10ML VIAL IV STA (07:34)
--- NOTE | 2019-02-21 08:36 | Diagnostic Imaging Report ---
Chest radiograph, 2 views Clinical indication: Fever. Comparison: None Findings: The heart is within normal limits of size. The mediastinal and hilar contours are unremarkable. The lungs are clear without evidence of focal consolidation, pleural effusion, or pneumothorax. No acute osseous abnormalities are identified. Impression: No radiographic evidence of acute cardiopulmonary process. Signed by: Philip Cruz MD on 02/21/2019 8:33 AM
[2019-02-21 08:37] LABS: BASOPHILS # (AUTO) 0.1 (0.0-0.1); BASOPHILS % 0.6 % (0.0-1.0); EOSINOPHILS # (AUTO) 0.1 (0.0-0.4); EOSINOPHILS % 1.1 % (0.0-6.0); HEMOGLOBIN 13.6 g/dL (12.0-16.0); LYMPHOCYTES # (AUTO) 2.3 (1.0-3.2); LYMPHOCYTES % 22.9 % (18.0-39.1); MEAN CORPUSCULAR HEMOGLOBIN 32.1 pg (28-32); MEAN CORPUSCULAR HGB CONC 33.2 g/dL (31-35); MEAN CORPUSCULAR VOLUME 96.7 fL (81-99); MONOCYTES % 9.6 % (4.4-11.3); NEUTROPHILS # (AUTO) 6.5 (2.1-6.9); NEUTROPHILS % 65.3 % (38.7-80.0); PLATELET COUNT 321 x10e3/uL (140-360); RED BLOOD COUNT 4.24 x10e6/uL (3.6-5.1); RED CELL DISTRIBUTION WIDTH 15.9 % (11.7-14.4)
[2019-02-21 08:44] LABS: BILIRUBIN,URINE NEGATIVE (NEGATIVE); CLARITY,URINE CLEAR (CLEAR); COLOR,URINE YELLOW (YELLOW); KETONES,URINE NEGATIVE (NEGATIVE); LEUKOCYTE ESTERASE ,URINE NEGATIVE (NEGATIVE); NITRITE,URINE NEGATIVE (NEGATIVE); PROTEIN,URINE DIPSTICK NEGATIVE (NEGATIVE); URINE UROBILINOGEN 0.2 mg/dL (0.2 - 1)
--- NOTE | 2019-02-21 08:56 | NUR ---
UPDATED PLAN OF CARE.
[2019-02-21 08:59] LABS: ALANINE AMINOTRANSFERASE 21 IU/L (0-55); ALBUMIN/GLOBULIN RATIO 1.2 (0.8-2.0); ALKALINE PHOSPHATASE 72 IU/L (40-150); ANION GAP 13.4 mmol/L (8-16); BLOOD UREA NITROGEN 12 mg/dL (7-26); BUN/CREATININE RATIO 14 (6-25); CALCIUM 9.4 mg/dL (8.4-10.2); CARBON DIOXIDE 23 mmol/L (22-29); CHLORIDE 107 mmol/L (98-107); CREATININE, SERUM 0.85 mg/dL (0.57-1.11); EST GLOMERULAR FILTRATION RATE > 60 ML/MIN (60-); GLUCOSE 89 mg/dL (74-118); POTASSIUM 3.4 mmol/L (3.5-5.1); SODIUM 140 mmol/L (136-145)
[2019-02-21 09:01] LABS: AMPHETAMINES SCREEN,URINE NEGATIVE (NEGATIVE); BENZODIAZEPINES SCREEN,URINE NEGATIVE (NEGATIVE); PHENCYCLIDINE SCREEN,URINE NEGATIVE (NEGATIVE)
--- NOTE | 2019-02-21 09:02 | NUR ---
CALLED LAB, SPOKE CHARLY, RELEASED BUN, CREATIN; [facility] NOTIFIED PT READY FOR CT.
[2019-02-21 09:23] LABS: AMORPHOUS SEDIMENT,URINE MODERATE (FEW); BACTERIA,URINE MANY /HPF; EPITHELIAL CELLS,URINE MANY /LPF
--- NOTE | 2019-02-21 10:27 | Diagnostic Imaging Report ---
EXAM: CT Abdomen and Pelvis WITH intravenous contrast INDICATION: Abdominal pain COMPARISON: 12/03/2017 TECHNIQUE: Abdomen and pelvis were scanned utilizing a multidetector helical scanner from the lung base to the pubic symphysis after administration of IV contrast. Coronal and sagittal reformations were obtained. Routine protocol was performed. Scan was performed during portal venous phase. IV CONTRAST: 100mL of Isovue 370 ORAL CONTRAST: Water RADIATION DOSE: Total DLP: 833.36 mGy*cm Dose modulation, iterative reconstruction, and/or weight based adjustment of the mA/kV was utilized to reduce the radiation dose to as low as reasonably achievable. FINDINGS: LOWER THORAX: Normal. HEPATOBILIARY: The liver is diffusely hypoattenuating compatible with steatosis. No focal hepatic lesions are identified. The gallbladder is surgically absent. There is no intrahepatic or extrahepatic biliary dilatation. SPLEEN: No splenomegaly. PANCREAS: No focal masses or ductal dilatation. ADRENALS: No adrenal nodules. KIDNEYS/URETERS: No hydronephrosis, stones, or solid mass lesions. PELVIC ORGANS/BLADDER: Unremarkable. PERITONEUM / RETROPERITONEUM: No free air or fluid. LYMPH NODES: No lymphadenopathy. VESSELS: Unremarkable. GI TRACT: No distention or wall thickening. There is no evidence of bowel obstruction. There is no evidence of appendicitis. BONES AND SOFT TISSUES: Posterior spinal fusion from L3 through S1 with transpedicular screws, interlocking rods and intervertebral disc spacers. IMPRESSION: No acute findings in the abdomen or pelvis. Hepatic steatosis There is meniscal cystectomy Signed by: Philip Cruz MD on 02/21/2019 10:23 AM
[2019-02-21] MEDS ORDERED: OMEPRAZOLE40 MG PO (10:43)
[2019-02-21] MEDS ORDERED: SODIUM CHLORIDE 0.9% 50ML 50 ML ONE (13:19)
[2019-02-21] MEDS ORDERED: IOPAMIDOL 370 MG/ML 200 ML INFUS..BTL INJ ONE (13:19)
== END 2019-02-21 11:00 | disposition home or self-care (01) ==
LOC: ER 07:19
DX: R10.12 Left upper quadrant pain (principal); R10.84 Generalized abdominal pain; R11.2 Nausea with vomiting, unspecified; K21.9 Gastro-esophageal reflux disease without esophagitis; M06.9 Rheumatoid arthritis, unspecified; Z86.711 Personal history of pulmonary embolism
CPT/HCPCS: 36415; 71046; 74177; 80053; 80307; 81001; 82150; 83605; 83690; 84702; 85025; 87040; 99284; C9113; J1885; J2405; J7030; Q9967

== ENCOUNTER 2020-06-29 07:56 | Outpatient (RCR) | payer OTHER ==
[~2020-06-29 07:56] MED LIST changes: +OMEPRAZOLE40 MG PO
== END 2020-07-01 ==
LOC: PT 07:56
PROVIDERS: ATTEND Orthopaedic Surgery Sports Medicine
DX: S76.012A Strain of muscle, fascia and tendon of left hip, initial encounter (principal)

== ENCOUNTER 2020-07-13 08:00 | Outpatient (RCR) | payer OTHER | END 2020-08-01 | LOC: PT 08:00 | PROVIDERS: ATTEND Orthopaedic Surgery Sports Medicine | DX: S73.102A Unspecified sprain of left hip, initial encounter (principal); M62.81 Muscle weakness (generalized); M25.552 Pain in left hip | CPT/HCPCS: 97139 ==

== ENCOUNTER 2021-02-22 20:10 | Emergency (ER) | payer OTHER ==
[~2021-02-22] VITALS: Ht 182.9 cm; Wt 62.1 kg
[2021-02-22] MEDS ORDERED: SODIUM CHLORIDE 0.9% 1000ML 1,000 ML IV STA (20:24)
[2021-02-22] MEDS ORDERED: ASPIRIN 81 MG CHEW TAB PO ONE (20:30)
[2021-02-22 20:40] LABS: BASOPHILS # (AUTO) 0.1 (0.0-0.1); BASOPHILS % 0.8 % (0.0-1.0); EOSINOPHILS # (AUTO) 0.2 (0.0-0.4); EOSINOPHILS % 1.9 % (0.0-6.0); HEMATOCRIT 39.6 % (34.2-44.1); HEMOGLOBIN 13.1 g/dL (12.0-16.0); LYMPHOCYTES # (AUTO) 3.6 (1.0-3.2); LYMPHOCYTES % 43.2 % (18.0-39.1); MEAN CORPUSCULAR HEMOGLOBIN 33.5 pg (28-32); MEAN CORPUSCULAR HGB CONC 33.1 g/dL (31-35); MEAN CORPUSCULAR VOLUME 101.3 fL (81-99); MONOCYTES # (AUTO) 0.7 (0.2-0.8); MONOCYTES % 8.7 % (4.4-11.3); NEUTROPHILS # (AUTO) 3.8 (2.1-6.9); NEUTROPHILS % 45.2 % (38.7-80.0); PLATELET COUNT 229 x10e3/uL (140-360); RED BLOOD COUNT 3.91 x10e6/uL (3.6-5.1); RED CELL DISTRIBUTION WIDTH 13.2 % (11.7-14.4)
[2021-02-22 20:56] LABS: ALBUMIN 4.2 g/dL (3.5-5.0); ALBUMIN/GLOBULIN RATIO 1.3 (0.8-2.0); ANION GAP 14.5 mmol/L (8-16); CALCIUM 8.6 mg/dL (8.4-10.2); CREATININE, SERUM 0.82 mg/dL (0.57-1.11); POTASSIUM 3.5 mmol/L (3.5-5.1)
[2021-02-22 21:02] LABS: CREATINE KINASE MB 3.1 ng/mL (0-5.0)
[2021-02-22] MEDS ORDERED: SODIUM CHLORIDE 0.9% 50ML 50 ML ONE (21:11)
[2021-02-22] MEDS ORDERED: IOPAMIDOL 370 MG/ML 200 ML INFUS..BTL INJ ONE (21:12)
[2021-02-22] MEDS ORDERED: PREDNISONE20 MG PO (22:30)
[2021-02-22] MEDS ORDERED: VENTOLIN HFA18 GM INH (22:30)
== END 2021-02-22 22:35 | disposition home or self-care (01) ==
LOC: ER 20:16
DX: R06.02 Shortness of breath (principal); J40 Bronchitis, not specified as acute or chronic; M06.9 Rheumatoid arthritis, unspecified; G40.909 Epilepsy, unspecified, not intractable, without status epilepticus; G47.30 Sleep apnea, unspecified; Z86.711 Personal history of pulmonary embolism
CPT/HCPCS: 36415; 71260; 80053; 82550; 82553; 83880; 84484; 84702; 85025; 93005; 99284; J7030; Q9967

== ENCOUNTER 2021-02-24 19:49 | Inpatient (IN) | payer OTHER ==
[~2021-02-24] VITALS: Ht 180.3 cm; Wt 64.4 kg
[~2021-02-24 19:49] MED LIST changes: +PREDNISONE20 MG PO; +VENTOLIN HFA18 GM INH
[2021-02-24] MEDS ORDERED: HEPARIN SOD (PORCINE) 5,000 UNIT/ML VIAL IV ONE (20:00)
[2021-02-24] MEDS ORDERED: HEPARIN 25,000 UNIT 1,200 UNIT in DEXTROSE 5% 250ML 250 ML IV SCH (20:00)
[2021-02-24] MEDS ORDERED: ASPIRIN 81 MG CHEW TAB PO ONE (20:00)
[2021-02-24] MEDS ORDERED: ONDANSETRON HCL INJ 2MG/ML 2ML 2 MG/ML VIAL IV STA (20:14)
[2021-02-24 20:15] LABS: BASOPHILS % 0.4 % (0.0-1.0); HEMATOCRIT 38.5 % (34.2-44.1); HEMOGLOBIN 12.8 g/dL (12.0-16.0); LYMPHOCYTES # (AUTO) 1.3 (1.0-3.2); LYMPHOCYTES % 12.4 % (18.0-39.1); MEAN CORPUSCULAR HGB CONC 33.2 g/dL (31-35); MEAN CORPUSCULAR VOLUME 99.2 fL (81-99); MONOCYTES # (AUTO) 0.5 (0.2-0.8); MONOCYTES % 4.4 % (4.4-11.3); NEUTROPHILS # (AUTO) 8.5 (2.1-6.9); NEUTROPHILS % 82.4 % (38.7-80.0); PLATELET COUNT 225 x10e3/uL (140-360); RED BLOOD COUNT 3.88 x10e6/uL (3.6-5.1); RED CELL DISTRIBUTION WIDTH 13.2 % (11.7-14.4)
[2021-02-24] MEDS ORDERED: MORPHINE SULFATE INJ 4 MG/ML INJ 1ML IV PRN (20:15)
[2021-02-24 20:20] LABS: INR 0.98; PARTIAL THROMBOPLASTIN TIME 27.9 seconds (23.8-35.5); PROTHROMBIN TIME 13.2 seconds (11.9-14.5)
[2021-02-24 20:29] LABS: ALBUMIN 4.3 g/dL (3.5-5.0); ALBUMIN/GLOBULIN RATIO 1.2 (0.8-2.0); ANION GAP 16.5 mmol/L (8-16); CREATININE, SERUM 0.7 mg/dL (0.57-1.11); POTASSIUM 3.5 mmol/L (3.5-5.1)
[2021-02-24] MEDS ORDERED: HEPARIN 25,000 UNIT DRIP IV ONE ×2 (20:30→20:54)
[2021-02-24 20:36] LABS: CREATINE KINASE MB 1.5 ng/mL (0-5.0)
[2021-02-24] MEDS: HEPARIN 25,000 UNIT 25,000 UNIT in DEXTROSE 5% 250ML 250 ML IV SCH (20:49)
[2021-02-24] MEDS ORDERED: KETOROLAC TROMETHAMINE 30 MG/ML VIAL IV STA (21:14)
[2021-02-24] MEDS ORDERED: METHYLPREDNISOLONE SOD SUCC 125 MG/2ML VIAL IV STA (21:14)
[2021-02-24 22:38] VITALS: BP 103/63
[2021-02-25] VITALS (9 sets, daily range): BP systolic 91–103; BP diastolic 52–63
[2021-02-25] MEDS ORDERED: VITAMIN B-121000 MCG PO (04:15)
[2021-02-25] MEDS ORDERED: BIOTIN10 MG PO (04:15)
[2021-02-25] MEDS ORDERED: FOLIC ACID0.4 MG PO (04:15)
[2021-02-25] MEDS ORDERED: AJOVY225 MG/1.5 (04:15)
[2021-02-25] MEDS ORDERED: PRECOSE25 MG PO (04:15)
[2021-02-25] MEDS ORDERED: CYMBALTA30 MG PO (04:15)
[2021-02-25] MEDS ORDERED: METHOTREXATE2.5 MG PO (04:15)
[2021-02-25] MEDS ORDERED: MULTI-VITAMIN1 EACH PO (04:15)
[2021-02-25] MEDS ORDERED: VITAMIN A10000 UNIT PO (04:15)
[2021-02-25] MEDS ORDERED: HYDROCORTISONE10 MG PO (04:15)
[2021-02-25] MEDS ORDERED: HUMIRA (04:15)
[2021-02-25 05:37] LABS: BASOPHILS % 0.2 % (0.0-1.0); HEMATOCRIT 36.5 % (34.2-44.1); HEMOGLOBIN 12.1 g/dL (12.0-16.0); LYMPHOCYTES # (AUTO) 0.8 (1.0-3.2); LYMPHOCYTES % 6.3 % (18.0-39.1); MEAN CORPUSCULAR HEMOGLOBIN 32.9 pg (28-32); MEAN CORPUSCULAR HGB CONC 33.2 g/dL (31-35); MEAN CORPUSCULAR VOLUME 99.2 fL (81-99); MONOCYTES # (AUTO) 0.3 (0.2-0.8); MONOCYTES % 2.3 % (4.4-11.3); NEUTROPHILS # (AUTO) 10.9 (2.1-6.9); NEUTROPHILS % 90.9 % (38.7-80.0); PLATELET COUNT 203 x10e3/uL (140-360); RED BLOOD COUNT 3.68 x10e6/uL (3.6-5.1); RED CELL DISTRIBUTION WIDTH 13.1 % (11.7-14.4)
[2021-02-25 06:57] LABS: ALBUMIN 3.6 g/dL (3.5-5.0); ALBUMIN/GLOBULIN RATIO 1.2 (0.8-2.0); ANION GAP 15.6 mmol/L (8-16); CALCIUM 8.8 mg/dL (8.4-10.2); CREATININE, SERUM 0.71 mg/dL (0.57-1.11); POTASSIUM 3.6 mmol/L (3.5-5.1)
[2021-02-25 07:06] LABS: CREATINE KINASE MB 0.9 ng/mL (0-5.0)
[2021-02-25 07:34] LABS: INR 1.03; PROTHROMBIN TIME 13.7 seconds (11.9-14.5)
[2021-02-25 07:53] LABS: PARTIAL THROMBOPLASTIN TIME 151.9 seconds (23.8-35.5)
[2021-02-25] MEDS: ACETAMINOPHEN 325 MG TAB PO PRN (12:11)
[2021-02-25 13:59] LABS: INR 1.05; PROTHROMBIN TIME 13.9 seconds (11.9-14.5)
[2021-02-25 14:01] LABS: PARTIAL THROMBOPLASTIN TIME 65.4 seconds (23.8-35.5)
[2021-02-25 16:27] LABS: CREATINE KINASE MB 0.6 ng/mL (0-5.0)
[2021-02-25] MEDS: HEPARIN 25,000 UNIT 25,000 UNIT in DEXTROSE 5% 250ML 250 ML IV SCH (19:21)
[2021-02-26] VITALS (8 sets, daily range): BP systolic 90–107; BP diastolic 53–61
[2021-02-26 05:37] LABS: BASOPHILS # (AUTO) 0.1 (0.0-0.1); BASOPHILS % 0.9 % (0.0-1.0); EOSINOPHILS # (AUTO) 0.2 (0.0-0.4); EOSINOPHILS % 2.4 % (0.0-6.0); HEMATOCRIT 34.5 % (34.2-44.1); HEMOGLOBIN 11.6 g/dL (12.0-16.0); LYMPHOCYTES % 54.7 % (18.0-39.1); MEAN CORPUSCULAR HEMOGLOBIN 33.5 pg (28-32); MEAN CORPUSCULAR HGB CONC 33.6 g/dL (31-35); MEAN CORPUSCULAR VOLUME 99.7 fL (81-99); MONOCYTES # (AUTO) 0.7 (0.2-0.8); MONOCYTES % 7.5 % (4.4-11.3); NEUTROPHILS # (AUTO) 3.1 (2.1-6.9); NEUTROPHILS % 34.3 % (38.7-80.0); PLATELET COUNT 185 x10e3/uL (140-360); RED BLOOD COUNT 3.46 x10e6/uL (3.6-5.1); RED CELL DISTRIBUTION WIDTH 13.5 % (11.7-14.4)
[2021-02-26] MEDS: ACETAMINOPHEN 325 MG TAB PO PRN (05:55)
[2021-02-26] MEDS: DULOXETINE HCL 30 MG DELAYED RELEASE PO SCH (09:13)
[2021-02-26] MEDS: HYDROCORTISONE 10 MG TAB PO SCH ×2 (09:13→17:35)
[2021-02-26] MEDS: FLUDROCORTISONE ACETATE 0.1 MG TAB PO SCH ×2 (09:15→17:35)
[2021-02-26] MEDS: MULTIVITAMINS/MINERALS TAB PO SCH (09:15)
[2021-02-26] MEDS: CYANOCOBALAMIN 1,000 MCG TAB PO SCH (09:15)
[2021-02-26 13:36] LABS: FREE T4 (FREE THYROXINE) 0.93 ng/dL (0.8-1.8); THYROID STIMULATING HORMONE 3.335 uIU/mL (0.350-4.940)
[2021-02-26] MEDS: ONDANSETRON HCL INJ 2MG/ML 2ML 2 MG/ML VIAL IV PRN (17:40)
[2021-02-26] MEDS: MORPHINE SULFATE INJ 4 MG/ML INJ 1ML IV PRN (17:40)
[2021-02-26] MEDS: HEPARIN 25,000 UNIT 25,000 UNIT in DEXTROSE 5% 250ML 250 ML IV SCH (19:26)
[2021-02-26] MEDS ORDERED: CENTRAL TPN FORMULA 1 BAG IV SCH (20:00)
[2021-02-26] MEDS ORDERED: BISACODYL 5 MG TAB EC PO PRN (23:00)
[2021-02-27] VITALS (8 sets, daily range): BP systolic 91–99; BP diastolic 52–65
[2021-02-27 07:18] LABS: BASOPHILS # (AUTO) 0.1 (0.0-0.1); BASOPHILS % 0.8 % (0.0-1.0); EOSINOPHILS # (AUTO) 0.2 (0.0-0.4); EOSINOPHILS % 3.3 % (0.0-6.0); HEMATOCRIT 35.4 % (34.2-44.1); HEMOGLOBIN 11.6 g/dL (12.0-16.0); LYMPHOCYTES # (AUTO) 2.6 (1.0-3.2); LYMPHOCYTES % 36.5 % (18.0-39.1); MEAN CORPUSCULAR HEMOGLOBIN 32.7 pg (28-32); MEAN CORPUSCULAR HGB CONC 32.8 g/dL (31-35); MEAN CORPUSCULAR VOLUME 99.7 fL (81-99); MONOCYTES # (AUTO) 0.7 (0.2-0.8); MONOCYTES % 9.4 % (4.4-11.3); NEUTROPHILS # (AUTO) 3.6 (2.1-6.9); NEUTROPHILS % 49.7 % (38.7-80.0); PLATELET COUNT 191 x10e3/uL (140-360); RED BLOOD COUNT 3.55 x10e6/uL (3.6-5.1); RED CELL DISTRIBUTION WIDTH 13.2 % (11.7-14.4)
[2021-02-27] MEDS ORDERED: CENTRAL TPN FORMULA 1 BAG IV SCH ×2 (08:07→20:00)
[2021-02-27] MEDS: HYDROCORTISONE 10 MG TAB PO SCH ×2 (09:38→18:06)
[2021-02-27] MEDS: MULTIVITAMINS/MINERALS TAB PO SCH (09:39)
[2021-02-27] MEDS: FLUDROCORTISONE ACETATE 0.1 MG TAB PO SCH ×2 (09:39→18:06)
[2021-02-27] MEDS: DULOXETINE HCL 30 MG DELAYED RELEASE PO SCH (09:39)
[2021-02-27] MEDS: CYANOCOBALAMIN 1,000 MCG TAB PO SCH (09:39)
[2021-02-27] MEDS: HEPARIN 25,000 UNIT 25,000 UNIT in DEXTROSE 5% 250ML 250 ML IV SCH (19:47)
[2021-02-28] VITALS (7 sets, daily range): BP systolic 86–100; BP diastolic 50–58
[2021-02-28 06:12] LABS: BASOPHILS # (AUTO) 0.1 (0.0-0.1); BASOPHILS % 0.8 % (0.0-1.0); EOSINOPHILS # (AUTO) 0.4 (0.0-0.4); EOSINOPHILS % 5.8 % (0.0-6.0); HEMATOCRIT 34.7 % (34.2-44.1); HEMOGLOBIN 11.3 g/dL (12.0-16.0); LYMPHOCYTES # (AUTO) 2.9 (1.0-3.2); LYMPHOCYTES % 40.6 % (18.0-39.1); MEAN CORPUSCULAR HEMOGLOBIN 33.1 pg (28-32); MEAN CORPUSCULAR HGB CONC 32.6 g/dL (31-35); MEAN CORPUSCULAR VOLUME 101.8 fL (81-99); MONOCYTES # (AUTO) 0.7 (0.2-0.8); MONOCYTES % 9.3 % (4.4-11.3); NEUTROPHILS # (AUTO) 3.1 (2.1-6.9); NEUTROPHILS % 43.2 % (38.7-80.0); PLATELET COUNT 189 x10e3/uL (140-360); RED BLOOD COUNT 3.41 x10e6/uL (3.6-5.1); RED CELL DISTRIBUTION WIDTH 13.5 % (11.7-14.4)
[2021-02-28] MEDS: HYDROCORTISONE 10 MG TAB PO SCH ×2 (08:28→18:24)
[2021-02-28] MEDS: FLUDROCORTISONE ACETATE 0.1 MG TAB PO SCH ×2 (08:28→18:16)
[2021-02-28] MEDS: MULTIVITAMINS/MINERALS TAB PO SCH (08:28)
[2021-02-28] MEDS: DULOXETINE HCL 30 MG DELAYED RELEASE PO SCH (08:28)
[2021-02-28] MEDS: CYANOCOBALAMIN 1,000 MCG TAB PO SCH (08:28)
[2021-02-28] MEDS: ACETAMINOPHEN 325 MG TAB PO PRN (08:34)
[2021-02-28] MEDS ORDERED: CENTRAL TPN FORMULA 1 BAG IV SCH (20:00)
[2021-02-28] MEDS ORDERED: HEPARIN 25,000 UNIT DRIP IV ONE (20:12)
[2021-02-28] MEDS: MORPHINE SULFATE INJ 4 MG/ML INJ 1ML IV PRN (20:30)
[2021-02-28] MEDS: ONDANSETRON HCL INJ 2MG/ML 2ML 2 MG/ML VIAL IV PRN (20:30)
[2021-03-01] VITALS: BP 94/57
[2021-03-01] MEDS: HEPARIN 25,000 UNIT 25,000 UNIT in DEXTROSE 5% 250ML 250 ML IV SCH (03:44)
[2021-03-01 04:00] VITALS: BP 91/48
[2021-03-01 07:49] VITALS: BP 100/51
[2021-03-01 08:22] LABS: BASOPHILS # (AUTO) 0.1 (0.0-0.1); EOSINOPHILS # (AUTO) 0.4 (0.0-0.4); EOSINOPHILS % 5.9 % (0.0-6.0); HEMATOCRIT 34.8 % (34.2-44.1); HEMOGLOBIN 11.2 g/dL (12.0-16.0); LYMPHOCYTES # (AUTO) 2.8 (1.0-3.2); LYMPHOCYTES % 44.6 % (18.0-39.1); MEAN CORPUSCULAR HEMOGLOBIN 33.7 pg (28-32); MEAN CORPUSCULAR HGB CONC 32.2 g/dL (31-35); MEAN CORPUSCULAR VOLUME 104.8 fL (81-99); MONOCYTES # (AUTO) 0.5 (0.2-0.8); MONOCYTES % 8.6 % (4.4-11.3); NEUTROPHILS # (AUTO) 2.5 (2.1-6.9); NEUTROPHILS % 39.7 % (38.7-80.0); PLATELET COUNT 175 x10e3/uL (140-360); RED BLOOD COUNT 3.32 x10e6/uL (3.6-5.1); RED CELL DISTRIBUTION WIDTH 13.2 % (11.7-14.4)
[2021-03-01] MEDS: DULOXETINE HCL 30 MG DELAYED RELEASE PO SCH (08:33)
[2021-03-01] MEDS: FLUDROCORTISONE ACETATE 0.1 MG TAB PO SCH (08:33)
[2021-03-01] MEDS: HYDROCORTISONE 10 MG TAB PO SCH (08:33)
[2021-03-01] MEDS: CYANOCOBALAMIN 1,000 MCG TAB PO SCH (08:33)
[2021-03-01] MEDS: MULTIVITAMINS/MINERALS TAB PO SCH (08:33)
[2021-03-01 08:53] VITALS: BP 100/51
[2021-03-01] MEDS: MORPHINE SULFATE INJ 4 MG/ML INJ 1ML IV PRN ×2 (09:04→14:26)
[2021-03-01 11:44] VITALS: BP 97/50
[2021-03-01] MEDS ORDERED: ONDANSETRON HCL 4 MG ORAL DISINTEGRATING TAB PO PRN (14:00)
== END 2021-03-01 14:52 | disposition home or self-care (01) | DRG 299 ==
LOC: ER 20:02 → ERHOLD 21:03 → MED/SURG 22:35 → OBSVTOIN 02-25 10:02
PROVIDERS: ADMIT Family Medicine; ATTEND Family Medicine
PROC: 3E0436Z Introduction of Nutritional Substance into Central Vein, Percutaneous Approach (ICD-10-PCS; principal; 2021-02-26)
DX: I82.621 Acute embolism and thrombosis of deep veins of right upper extremity (principal); I26.99 Other pulmonary embolism without acute cor pulmonale; I27.82 Chronic pulmonary embolism; E27.2 Addisonian crisis; I48.92 Unspecified atrial flutter; K95.89 Other complications of other bariatric procedure; I95.1 Orthostatic hypotension; Z79.01 Long term (current) use of anticoagulants; E16.2 Hypoglycemia, unspecified; Y84.8 Other medical procedures as the cause of abnormal reaction of the patient, or of later complication, without mention of misadventure at the time of the procedure; I10 Essential (primary) hypertension; Z88.2 Allergy status to sulfonamides; Z88.8 Allergy status to other drugs, medicaments and biological substances; Z91.018 Allergy to other foods; Z98.84 Bariatric surgery status; Z20.822 Contact with and (suspected) exposure to COVID-19
CPT/HCPCS: 36415; 70450; 80053; 81241; 81400; 82024; 82533; 82550; 82553; 82948; 83036; 84439; 84443; 84484; 85025; 85303; 85306; 85610; 85730; 93005; 93306; 99284; G0378; J1644; J2270; J2405; U0002

== ENCOUNTER 2023-05-09 11:09 | Emergency (ER) | payer BC, OTHER ==
[~2023-05-09] VITALS: Ht 180.3 cm; Wt 64.4 kg
[~2023-05-09 11:09] MED LIST changes: +AJOVY225 MG/1.5; +BIOTIN10 MG PO; +CYMBALTA30 MG PO; +FOLIC ACID0.4 MG PO; +HUMIRA; +HYDROCORTISONE10 MG PO; +METHOTREXATE2.5 MG PO; +MULTI-VITAMIN1 EACH PO; +PRECOSE25 MG PO; +VITAMIN A10000 UNIT PO; +VITAMIN B-121000 MCG PO
[2023-05-09 11:46] LABS: BASOPHILS # (AUTO) 0.1 (0.0-0.1); BASOPHILS % 1.4 % (0.0-1.0); EOSINOPHILS # (AUTO) 0.2 (0.0-0.4); EOSINOPHILS % 3.3 % (0.0-6.0); HEMATOCRIT 33.6 % (34.2-44.1); HEMOGLOBIN 10.1 g/dL (12.0-16.0); LYMPHOCYTES # (AUTO) 1.9 (1.0-3.2); LYMPHOCYTES % 31.8 % (18.0-39.1); MEAN CORPUSCULAR HEMOGLOBIN 24.6 pg (28-32); MEAN CORPUSCULAR HGB CONC 30.1 g/dL (31-35); MONOCYTES # (AUTO) 0.6 (0.2-0.8); MONOCYTES % 9.8 % (4.4-11.3); NEUTROPHILS # (AUTO) 3.1 (2.1-6.9); NEUTROPHILS % 53.5 % (38.7-80.0); PLATELET COUNT 382 x10e3/uL (140-360); RED CELL DISTRIBUTION WIDTH 20.2 % (11.7-14.4); WHITE BLOOD COUNT 5.82 x10e3/uL (4.8-10.8)
[2023-05-09 12:21] LABS: ALANINE AMINOTRANSFERASE 11 IU/L (0-55); ALBUMIN 4.2 g/dL (3.5-5.0); ALBUMIN/GLOBULIN RATIO 1.2 (0.8-2.0); ALKALINE PHOSPHATASE 77 IU/L (40-150); ANION GAP 14.6 mmol/L (8-16); BLOOD UREA NITROGEN 11 mg/dL (7-26); BUN/CREATININE RATIO 12 (6-25); CALCIUM 8.7 mg/dL (8.4-10.2); CARBON DIOXIDE 18 mmol/L (22-29); CHLORIDE 111 mmol/L (98-107); CREATININE, SERUM 0.91 mg/dL (0.57-1.11); LIPASE 228 U/L (8-78); POTASSIUM 3.6 mmol/L (3.5-5.1); SODIUM 140 mmol/L (136-145)
[2023-05-09] MEDS ORDERED: IOPAMIDOL 370 MG/ML 100 ML INFUS..BTL INJ ONE (12:27)
[2023-05-09] MEDS ORDERED: ONDANSETRON HCL INJ 2MG/ML 2ML 2 MG/ML VIAL IV STA (12:54)
[2023-05-09] MEDS ORDERED: LACTATED RINGER'S 1,000 ML IV ONE (13:00)
[2023-05-09] MEDS ORDERED: Morphine 4mg INJECTION 4 MG/ML INJ IV ONE (13:00)
[2023-05-09] MEDS ORDERED: MAGNESIUM HYDROXIDE 30 ML UDC PO ONE (14:00)
[2023-05-09] MEDS ORDERED: LACTULOSE SYRUP 20 GM/30 ML UDC PO ONE (14:00)
[2023-05-09] MEDS ORDERED: GOLYTELY SOLU4000 M1 PO (14:05)
[2023-05-09 14:58] VITALS: BP 125/67; PULSE 71; RESP 17; TEMP 98.6; O2SAT 100
== END 2023-05-09 15:05 | disposition home or self-care (01) ==
LOC: ER 11:19
DX: R10.33 Periumbilical pain (principal); K59.00 Constipation, unspecified; G40.909 Epilepsy, unspecified, not intractable, without status epilepticus; F41.9 Anxiety disorder, unspecified; Z20.822 Contact with and (suspected) exposure to COVID-19; I25.2 Old myocardial infarction
CPT/HCPCS: 36415; 74177; 80053; 83690; 83735; 84702; 85025; 99284; J2270; J2405; J7121; Q9967; U0002

== ENCOUNTER 2024-03-03 18:05 | Emergency (ER) | payer BC, OTHER ==
[~2024-03-03] VITALS: Ht 185.4 cm; Wt 66.7 kg
[~2024-03-03 18:05] MED LIST changes: +GOLYTELY SOLU4000 M1 PO
[2024-03-03 18:30] VITALS: PULSE 98; RESP 16; TEMP 98.9; O2SAT 100
[2024-03-03] MEDS: IBUPROFEN 600 MG TAB PO STA (19:13)
[2024-03-03] MEDS ORDERED: IBUPROFEN 600 MG TAB ONE (19:13)
== END 2024-03-03 20:46 | disposition left against medical advice (07) ==
LOC: ER 18:38
DX: S93.401A Sprain of unspecified ligament of right ankle, initial encounter (principal); W18.42XA Slipping, tripping and stumbling without falling due to stepping into hole or opening, initial encounter; G40.909 Epilepsy, unspecified, not intractable, without status epilepticus; F41.9 Anxiety disorder, unspecified; Z86.718 Personal history of other venous thrombosis and embolism; I25.2 Old myocardial infarction; G47.30 Sleep apnea, unspecified; K76.0 Fatty (change of) liver, not elsewhere classified

== ENCOUNTER 2025-04-04 08:51 | Emergency (ER) | payer OTHER ==
[~2025-04-04] VITALS: Ht 182.9 cm; Wt 74.6 kg
[2025-04-04 08:57] VITALS: PULSE 80; RESP 20; TEMP 98.2; O2SAT 99
[2025-04-04] MEDS ORDERED: ULTRAM 50MG50 MG PO (09:51)
[2025-04-04] MEDS: TRAMADOL HCL 50 MG TAB PO ONE (10:23)
== END 2025-04-04 10:01 | disposition home or self-care (01) ==
LOC: FSED 09:06
DX: S63.695A Other sprain of left ring finger, initial encounter (principal); X50.9XXA Other and unspecified overexertion or strenuous movements or postures, initial encounter; Y93.89 Activity, other specified; G40.909 Epilepsy, unspecified, not intractable, without status epilepticus; M06.9 Rheumatoid arthritis, unspecified; G47.30 Sleep apnea, unspecified; F41.9 Anxiety disorder, unspecified; I25.2 Old myocardial infarction; Z86.718 Personal history of other venous thrombosis and embolism; Z87.19 Personal history of other diseases of the digestive system; Z98.84 Bariatric surgery status
CPT/HCPCS: 99284